=== PATIENT | male | born 1945 | race Caucasian/White ===

== ENCOUNTER 2016-10-10 21:27 | Inpatient (IN) | payer MEDICARE ==
[~2016-10-10] VITALS: Ht 165.1 cm; Wt 60.1 kg
[~2016-10-10 21:27] MED LIST: AUGM875T PO; AZIT250T74 PO; FURO20TA PO; MULT-65 PO; MYCO250 PO; NEXI40CA PO; PROG1CAP PO; VITA20002 PO; potassium PO
[2016-10-10 21:29] VITALS: BP 137/61; PULSE 117; RESP 22; TEMP 98.1; O2SAT 84
[2016-10-10 21:51] VITALS: BP 142/63; PULSE 109; RESP 24; TEMP 97.2; O2SAT 89
[2016-10-10] MEDS ORDERED: FURO1TAB62 PO (21:58)
[2016-10-10 21:59] VITALS: O2SAT 98
--- NOTE | 2016-10-10 22:13 | PD ---
HPI Chief Complaint: Respiratory Symptoms Time Seen by Provider: 22:10 Travel History International Travel<30 days: No Contact w/Intl Traveler<30days: No Traveled to known affect area: No History of Present Illness HPI 71-year-old male that presents to the ED for evaluation of shortness of breath. Patient has a chronic history of esophageal cancer currently undergoing chemotherapy. Per patient his last chemotherapy was on Wednesday. Per patient he has a history of pleural effusion secondary to the cancer and he has had thoracocentesis in the past. Per patient this feels similar to his previous. Per patient he has not had one in a while. Patient denies taking any blood thinners. He denies any cough or runny nose. Per patient he has shortness of breath with exertion as well as with movement. Also with sitting. Denies any chest pain. Denies any fevers chills or sweats. No sick contacts. No allergies to medication. No bowel movement or urinary issues. He does have some problems with dysphagia but that's chronic from his cancer. Patient mainly here to be evaluated for likely pleural effusion. PFSH Past Medical History Cancer: Yes (esophageal ca) Cardiovascular Problems: Yes (heart murmur) Diabetes: No Diminished Hearing: No Endocrine: No Gastrointestinal Disorders: No Glaucoma: No Genitourinary: No Hepatitis: Yes (CIRRHOSIS--S/P TRANSPLANT) Hypertension: Yes (hx only) Immune Disorder: No Implanted Vascular Access Dvce: Yes Medical other: Yes (eczema, warts) Musculoskeletal: No Neurologic: No Psychiatric: No Reproductive: No Respiratory: Yes (sob while laying supine) Thyroid Disease: No Past Surgical History Abdominal Surgery: Yes (LIVER TRANSPLANT, APPENDECTOMY, HERNIA REPAIR WITH MESH ) AICD: No Appendectomy: Yes Cardiac Surgery: No Endocrine Surgery: No Joint Replacement: No Oral Surgery: Yes (T & A) Pacemaker: No Thoracic Surgery: No Tonsillectomy: Yes Other Surgery: Yes (LIVER TRANSPLANT/ port to right chest wall) Social History Alcohol Use: Yes (4-6 DRINKS A DAY) Tobacco Use: No Substance Use: No Allergies-Medications (Allergen,Severity, Reaction): Coded Allergies: No Known Allergies (Verified , 10/10/16) Reported Meds & Prescriptions Reported Meds & Active Scripts Active Reported Lasix (Furosemide) 20 Mg Tab 20 Mg PO BID Review of Systems General / Constitutional: No: Fever, Chills, Weight Gain, Weight Loss, Other Eyes: No: Diploplia, Blurred Vision, Photophobia, Drainage, Redness, Foreign Body Sensation, Pain, Tearing, Blind Spots, Visual changes, Blindness, Other HENT: No: Headaches, Vertigo, Lightheadedness, Sore Throat, Rhinitis, Rhinorrhea, Congestion, Nosebleed, Neck Stiffness, Neck Pain, Masses, Gingival Bleeding, Dental Difficulties, Ear Discharge, Earache, Other Cardiovascular: Positive: Chest Pain or Discomfort Respiratory: Positive: Shortness of Breath, No: Cough, Wheezing, Sneezing, Orthopnea, Hemoptysis, Stridor, Night Sweats, Pleuritic Pain, Other Gastrointestinal: No: Nausea, Vomiting, Diarrhea, Abdominal Pain, Hematemesis, Hematochezia, Constipation, Changes in Bowel Habits, Indigestion, Dysphagia, Loss of Appetite, Other Genitourinary: No: Urgency, Frequency, Dysuria, Nocturia, Hematuria, Decreased Urinary Output, Oliguria, Hesitancy, Dribbling, Incontinence, Pelvic Pain, Flank Pain, Dyspareunia, Discharge, Dysmenorrhea, Menorrhagia, Metorrhagia, Vaginal Bleeding, Other Musculoskeletal: No: Myalgias, Arthralgias, Limited ROM, Weakness, Cramping, Edema, Pain, Atrophy, Other Skin: No Rash, No Itching, No Dryness, No Lumps, No Hives, No Change in Pigmentation, No Change in nails, No Alopecia, No Lesions, No Breast Lumps, No Breast Tenderness, No Breast Swelling, No Other Neurologic: No: Weakness, Dizziness, Syncope, Focal Abnormalities, Coordination Problem, Tremor, Ataxia, Headache, Change in Mentation, Slurred Speech, Paresthesia, Incontinence, Seizures, Sensory Disturbance, Other Psychiatric: No: Anxiety, Depression, Suicidal Ideations, Disorder of Thought, Mood Disorder, Substance Abuse, Homicidal Ideation, Other Endocrine: No: Heat Intolerance, Cold Intolerance, Polyuria, Polydipsia, Other Hematologic/Lymphatic: No: Easy Bruising, Lymph Node Enlargement, Other Physical Exam Narrative GENERAL: SKIN: Warm and dry. HEAD: Atraumatic. Normocephalic. EYES: Pupils equal and round. No scleral icterus. No injection or drainage. ENT: No nasal bleeding or discharge. Mucous membranes pink and moist. Tongue is midline. No uvula deviation. NECK: Trachea midline. No JVD. CARDIOVASCULAR: Regular rate and rhythm. No murmurs, S3, S4. RESPIRATORY: No accessory muscle use. Patient does have some diminished breath sounds on the right lung compared to the left. Breath sounds equal bilaterally. GASTROINTESTINAL: Abdomen soft, non-tender, nondistended. Hepatic and splenic margins not palpable. MUSCULOSKELETAL: Extremities without clubbing, cyanosis, or edema. No obvious deformities. NEUROLOGICAL: Awake and alert. No obvious cranial nerve deficits. Motor grossly within normal limits. Five out of 5 muscle strength in the arms and legs. Normal speech. PSYCHIATRIC: Appropriate mood and affect; insight and judgment normal. Data Data Last Documented VS Vital Signs Date Time Temp Pulse Resp B/P Pulse Ox O2 Delivery O2 Flow Rate FiO2 10/10/16 21:59 98 Nasal Cannula 3 10/10/16 21:51 97.2 109 24 142/63 Orders Electrocardiogram (10/10/16 21:56) Complete Blood Count With Diff (10/10/16 21:56) Basic Metabolic Panel (Bmp) (10/10/16 21:56) Prothrombin Time / Inr (Pt) (10/10/16 21:56) Act Partial Throm Time (Ptt) (10/10/16 21:56) Magnesium (Mg) (10/10/16 21:56) Chest, Single Ap (10/10/16 21:56) Ecg Monitoring (10/10/16 21:56) Oximetry (10/10/16 21:56) B-Type Natriuretic Peptide (10/10/16 22:34) Troponin I (10/10/16 22:34) Arterial Blood Gas (Abg) (10/10/16 ) Lorazepam Inj (Ativan Inj) (10/10/16 23:00) Labs Laboratory Tests Test 10/10/16 22:10 White Blood Count 3.6 TH/MM3 Red Blood Count 3.04 MIL/MM3 Hemoglobin 9.8 GM/DL Hematocrit 29.0 % Mean Corpuscular Volume 95.3 FL Mean Corpuscular Hemoglobin 32.2 PG Mean Corpuscular Hemoglobin 33.8 % Concent Red Cell Distribution Width 13.3 % Platelet Count 185 TH/MM3 Mean Platelet Volume 9.6 FL Neutrophils (%) (Auto) 89.7 % Lymphocytes (%) (Auto) 5.5 % Monocytes (%) (Auto) 2.7 % Eosinophils (%) (Auto) 1.4 % Basophils (%) (Auto) 0.7 % Neutrophils # (Auto) 3.2 TH/MM3 Lymphocytes # (Auto) 0.2 TH/MM3 Monocytes # (Auto) 0.1 TH/MM3 Eosinophils # (Auto) 0.1 TH/MM3 Basophils # (Auto) 0.0 TH/MM3 CBC Comment DIFF FINAL Differential Comment Prothrombin Time 10.8 SEC Prothromb Time International 1.0 RATIO Ratio Activated Partial 53.7 SEC Thromboplast Time MDM Medical Decision Making Medical Screen Exam Complete: Yes Emergency Medical Condition: Yes Medical Record Reviewed: Yes Interpretation(s) CBC & BMP Diagram 10/10/16 22:10 Differential Diagnosis Pleural effusion versus pneumothorax versus shortness of breath versus malignancy versus pneumonia Narrative Course 71-year-old male that presents to the ED for evaluation of what appears to be likely pleural effusion. Patient was properly examined and was found to have signs and symptoms consistent with hypoxia and pleural effusion. Labs and imaging ordered and did show what appears to be pleural effusion. My attending about the patient with me and agrees with plan. Case was signed out to him pending disposition likely admission. Teodoro Tatum Oct 10, 2016 22:13
[2016-10-10 22:27] LABS: AUTOMATED NEUTROPHIL # 3.2 TH/MM3 (1.8-7.7); BASOPHIL % 0.7 % (0.0-2.0); EOSINOPHIL # 0.1 TH/MM3 (0-0.4); EOSINOPHIL % 1.4 % (0.0-4.0); HEMO FLAGS DIFF FINAL; LYMPH % 5.5 % (9.0-44.0); LYMPHOCYTE # 0.2 TH/MM3 (1.0-4.8); MEAN CELL VOLUME 95.3 FL (80.0-100.0); MEAN CORPUSCULAR HEMOGLOBIN 32.2 PG (27.0-34.0); MEAN CORPUSCULAR HGB CONC 33.8 % (32.0-36.0); MONO % 2.7 % (0.0-8.0); NEUT % 89.7 % (16.0-70.0); PLATELET COUNT 185 TH/MM3 (150-450); RED BLOOD COUNT 3.04 MIL/MM3 (4.50-5.90); RED CELL DISTRIBUTION WIDTH 13.3 % (11.6-17.2); WHITE BLOOD COUNT 3.6 TH/MM3 (4.0-11.0)
[2016-10-10 22:37] LABS: APTT (PATIENT) 53.7 SEC (24.3-30.1); PROTHROMBIN TIME - PATIENT 10.8 SEC (9.8-11.6)
--- NOTE | 2016-10-10 22:50 | RADRPT ---
EXAM DATE/TIME: 10/10/2016 22:19 [facility] COMPARISON: CHEST EXPIRATION ONLY, July 10, 2016, 12:08. INDICATIONS : Short of Breath. MEDICAL HISTORY : Hypertension. Dyspnea. Esophageal cancer. Hip Cancer. Cirrhosis. Pleural effusion. SURGICAL HISTORY : Appendectomy. Tonsillectomy. Oral surgery. Hernia repair. Liver transplant. Port Placement. Chemoth erapy. ENCOUNTER: Initial ACUITY: 1 day PAIN SCORE: 0/10 LOCATION: Bilateral chest FINDINGS: There is a moderate size right pleural effusion and small left effusion. Cardiomegaly. Basilar lung c onsolidation. [id number] in superior vena cava. CONCLUSION: 1. Moderate right and small left pleural effusion with basilar airspace disease. [id number] in sup erior vena cava. Cardiomegaly. Roshan Marion MD on October 10, 2016 at 22:48 Board Certified Radiologist. This report was verified electronically.
[2016-10-10 22:52] LABS: BICARBONATE 31.7 MEQ/L (21.0-32.0); MAGNESIUM 1.7 MG/DL (1.5-2.5)
[2016-10-10] MEDS ORDERED: LORazepam 2 MG/ML VIAL IV PUSH ONE (23:00)
[2016-10-10 23:03] LABS: BLOOD GAS BASE EXCESS 3.7 mmol/L (-2-2); BLOOD GAS CARBOXYHEMOGLOBIN 2.2 % (0-4); BLOOD GAS HCO3 28 mmol/L (22-26); BLOOD GAS METHEMOGLOBIN 0.2 % (0-2); BLOOD GAS O2 HGB SATURATION 93 % (90-100); BLOOD GAS OXYGEN CONTENT 13.1 Vol % (12.0-20.0); BLOOD GAS PCO2 40 mmHg (38-42); BLOOD GAS PO2 73 mmHG (61-120); CRITICAL VALUE NO; OXYGEN DEVICE NASAL CANNULA; TEMP CORR TO 98.6
[2016-10-10 23:04] LABS: DRAW SITE RT RADIAL; LITER FLOW 4 L/M; NUMBER OF ARTERIAL PUNCTURES 1; STAT YES; ULNAR PULSE PRESENT
[2016-10-10] MEDS ORDERED: SODIUM CHLORIDE 0.9% FLUSH 10 ML FLUSH IVF PRN (23:15)
[2016-10-10] MEDS ORDERED: MISCELLANEOUS NURSING INFORMATION XX SCH (23:15)
[2016-10-10] MEDS ORDERED: ONDANSETRON HCL 4 MG/2 ML VIAL IV PRN (23:15)
[2016-10-10] MEDS ORDERED: CHLORHEXIDINE GLUCONATE 2 % 1 PACK (2 CLOTHS) TOP PRN (23:15)
[2016-10-10] MEDS ORDERED: ACETAMINOPHEN 325 MG TAB PO PRN (23:15)
[2016-10-10] MEDS ORDERED: MAGNESIUM HYDROXIDE SUSP 30 ML CUP PO PRN (23:15)
--- NOTE | 2016-10-10 23:23 | PD ---
Data Data Last Documented VS Vital Signs Date Time Temp Pulse Resp B/P Pulse Ox O2 Delivery O2 Flow Rate FiO2 10/10/16 21:59 98 Nasal Cannula 3 10/10/16 21:51 97.2 109 24 142/63 Orders Electrocardiogram (10/10/16 21:56) Complete Blood Count With Diff (10/10/16 21:56) Basic Metabolic Panel (Bmp) (10/10/16 21:56) Prothrombin Time / Inr (Pt) (10/10/16 21:56) Act Partial Throm Time (Ptt) (10/10/16 21:56) Magnesium (Mg) (10/10/16 21:56) Chest, Single Ap (10/10/16 21:56) Ecg Monitoring (10/10/16 21:56) Oximetry (10/10/16 21:56) B-Type Natriuretic Peptide (10/10/16 22:34) Troponin I (10/10/16 22:34) Arterial Blood Gas (Abg) (10/10/16 ) Lorazepam Inj (Ativan Inj) (10/10/16 23:00) Admit Order (Ed Use Only) (10/10/16 23:04) Labs Laboratory Tests Test 10/10/16 10/10/16 10/10/16 22:10 22:40 22:57 White Blood Count 3.6 TH/MM3 Red Blood Count 3.04 MIL/MM3 Hemoglobin 9.8 GM/DL Hematocrit 29.0 % Mean Corpuscular Volume 95.3 FL Mean Corpuscular Hemoglobin 32.2 PG Mean Corpuscular Hemoglobin 33.8 % Concent Red Cell Distribution Width 13.3 % Platelet Count 185 TH/MM3 Mean Platelet Volume 9.6 FL Neutrophils (%) (Auto) 89.7 % Lymphocytes (%) (Auto) 5.5 % Monocytes (%) (Auto) 2.7 % Eosinophils (%) (Auto) 1.4 % Basophils (%) (Auto) 0.7 % Neutrophils # (Auto) 3.2 TH/MM3 Lymphocytes # (Auto) 0.2 TH/MM3 Monocytes # (Auto) 0.1 TH/MM3 Eosinophils # (Auto) 0.1 TH/MM3 Basophils # (Auto) 0.0 TH/MM3 CBC Comment DIFF FINAL Differential Comment Prothrombin Time 10.8 SEC Prothromb Time International 1.0 RATIO Ratio Activated Partial 53.7 SEC Thromboplast Time Sodium Level 136 MEQ/L Potassium Level 4.0 MEQ/L Chloride Level 93 MEQ/L Carbon Dioxide Level 31.7 MEQ/L Anion Gap 11 MEQ/L Blood Urea Nitrogen 28 MG/DL Creatinine 0.95 MG/DL Estimat Glomerular Filtration 78 ML/MIN Rate Random Glucose 168 MG/DL Calcium Level 8.6 MG/DL Magnesium Level 1.7 MG/DL Troponin I 0.08 NG/ML B-Type Natriuretic Peptide 2484 PG/ML Blood Gas Puncture Site RT RADIAL Blood Gas Patient Temperature 98.6 Blood Gas HCO3 28 mmol/L Blood Gas Base Excess 3.7 mmol/L Blood Gas Oxygen Saturation 93 % Arterial Blood pH 7.46 Arterial Blood Partial 40 mmHg Pressure CO2 Arterial Blood Partial 73 mmHG Pressure O2 Arterial Blood Oxygen Content 13.1 Vol % Arterial Blood 2.2 % Carboxyhemoglobin Arterial Blood Methemoglobin 0.2 % Blood Gas Hemoglobin 10.0 G/DL Oxygen Delivery Device NASAL CANNULA Blood Gas Liter Flow 4 L/M MDM Medical Record Reviewed: Yes Supervised Visit with DAVID: Yes Narrative Course IRigo, have reviewed the advance practice practitioner's documentation and am in agreement unless otherwise documented below, met with the patient face to face, made the diagnosis, and the medical decision making was done by me. *My assessment and Findings: The patient has bilateral pleural effusions. He has mild dyspnea. He'll be admitted for evaluation of same. Placement in the ICU is considered appropriate for the patient. Case discussed with Dr. Mayer. Case discussed with Dr. Mcgregor for laminate floor installer service Diagnosis Primary Impression: Pleural effusion Additional Impression: Dyspnea Qualified Code: R06.00 - Dyspnea, unspecified type Admitting Information Admitting Physician Requests: Admit Omar Sierra MD Oct 10, 2016 23:23
[2016-10-11] VITALS (13 sets, daily range): BP systolic 94–153; BP diastolic 48–72; PULSE 88–128; RESP 18–24; TEMP 97.5–98.2; O2SAT 92–100
--- NOTE | 2016-10-11 03:02 | PD.PROCEDR ---
Procedure Note Procedure Thoracentesis Right A time-out was completed verifying correct patient, procedure, site, positioning , and special equipment if applicable. The patients right side was prepped and draped in a sterile manner after the appropriate infiltration level was confirmed by ultrasound. 1% lidocaine was used anesthetize the surrounding skin. A finder needle was then used to locate fluid and clear yellow fluid was obtained. A 10-blade scalpel used to make the incision. The thoracentesis catheter was then threaded without difficulty. The patient had 2000 mL of hemorrhagic fluid removed. A post-procedure chest x-ray was ordered and the fluid will be sent for several studies. Estimated Blood Loss: 2 mL Leonid Mcgregor MD Oct 11, 2016 03:02
[2016-10-11] MEDS: CHLORHEXIDINE GLUCONATE 2 % 1 PACK (2 CLOTHS) TOP SCH (04:00)
[2016-10-11 04:32] LABS: ALT (GPT) 46 U/L (12-78); ANION GAP 7 MEQ/L (5-15); AST (GOT) 51 U/L (15-37); BICARBONATE 33.1 MEQ/L (21.0-32.0); BLOOD UREA NITROGEN 29 MG/DL (7-18); CHLORIDE 97 MEQ/L (98-107); GLOMERULAR FILTRATION RATE 75 ML/MIN (>89); MAGNESIUM 1.8 MG/DL (1.5-2.5); POTASSIUM 4.1 MEQ/L (3.5-5.1); SODIUM (NA) 137 MEQ/L (136-145)
[2016-10-11 04:35] LABS: ALKALINE PHOSPHATASE 841 U/L (45-117); TOTAL BILIRUBIN ADULT 2.4 MG/DL (0.2-1.0)
[2016-10-11 04:37] LABS: AUTOMATED NEUTROPHIL # 1.7 TH/MM3 (1.8-7.7); BASOPHIL % 0.4 % (0.0-2.0); EOSINOPHIL % 0.2 % (0.0-4.0); HEMATOCRIT 27.2 % (39.0-51.0); LYMPH % 6.4 % (9.0-44.0); LYMPHOCYTE # 0.1 TH/MM3 (1.0-4.8); MEAN CELL VOLUME 95.1 FL (80.0-100.0); MEAN CORPUSCULAR HEMOGLOBIN 32.8 PG (27.0-34.0); MEAN CORPUSCULAR HGB CONC 34.5 % (32.0-36.0); PLATELET COUNT 151 TH/MM3 (150-450); RED BLOOD COUNT 2.86 MIL/MM3 (4.50-5.90); RED CELL DISTRIBUTION WIDTH 13.6 % (11.6-17.2); WHITE BLOOD COUNT 1.9 TH/MM3 (4.0-11.0)
[2016-10-11 04:39] LABS: PROTHROMBIN TIME - PATIENT 11.1 SEC (9.8-11.6)
[2016-10-11 04:41] LABS: CREATINE KINASE 35 U/L (39-308)
[2016-10-11 04:47] LABS: HEMO FLAGS AUTO DIFF
--- NOTE | 2016-10-11 08:38 | RADRPT ---
EXAM DATE/TIME: 10/11/2016 01:26 [facility] COMPARISON: CHEST SINGLE AP, October 10, 2016, 22:19. INDICATIONS : Post right sided thoracentesis. MEDICAL HISTORY : Hypertension. Carcinoma, esophageal. Cirrhosis. SURGICAL HISTORY : Appendectomy. Tonsillectomy. Liver transplant ENCOUNTER: Subsequent ACUITY: 1 day PAIN SCORE: Non-responsive. LOCATION: Right chest FINDINGS: A single portable frontal view of the chest shows reduction in size of the right pleural effusion. A small right effusion remains. A moderate size left pleural effusion is again noted. Bibasilar consoli dation more pronounced on the left. Heart remains enlarged. Power port overlies the right chest. No p neumothorax. A degenerative thoracic spine. CONCLUSION: Reduction in size of the right pleural effusion without pneumothorax. Persistent cardiomegaly, bilate ral pleural effusions, and bibasilar infiltrates. Marlon Gaona Jr., MD on October 11, 2016 at 1:53 Board Certified Radiologist. This report was verified electronically.
[2016-10-11 10:28] LABS: BANDS 17 % (0-6); NEUTROPHIL # MANUAL DIFF 1.8 TH/MM3 (1.8-7.7); POLYS (SEG NEUTROPHILS) 80 % (16-70); WBC DIFF SAMPLE 100
[2016-10-11 10:32] LABS: PLATELET ESTIMATE SMEAR NORMAL (NORMAL); PLATELET MORPHOLOGY NORMAL (NORMAL); SCAN/DIFF FINAL DIFF MANUAL
--- NOTE | 2016-10-11 12:19 | HHI.HP ---
History of Present Illness Service Family medicine Primary Care Physician Rufino Mayer, DO Admission Diagnosis Pleural Effusion, Dyspnea Diagnoses: History of Present Illness Patient is a 71-year-old male that presents to the ED for evaluation of shortness of breath. Patient has a chronic history of esophageal cancer and hip cancer currently undergoing chemotherapy last dose on Wednesday. Per patient he has a history of pleural effusion secondary to the cancer and he has had thoracocentesis in the past. Per patient this feels similar to his previous. Per patient he has not had one in a while. Patient denies taking any blood thinners. He denies any cough or runny nose. Per patient he has shortness of breath with exertion as well as with movement. Also with sitting. Denies any chest pain. Denies any fevers chills or sweats. No sick contacts. No allergies to medication. No bowel movement or urinary issues. He does have some problems with dysphagia but that's chronic from his cancer. Patient also has a history of liver transplant followed by Dr. Ann for ETOH use. He continues to drink. Review of Systems Constitutional: COMPLAINS OF: Change in appetite, DENIES: Fever, Dizziness Respiratory: COMPLAINS OF: Cough, Sputum production, Shortness of breath Cardiovascular: DENIES: Chest pain, Palpitations, Syncope Gastrointestinal: DENIES: Abdominal pain, Constipation, Diarrhea Musculoskeletal: COMPLAINS OF: Muscle aches Psychiatric: DENIES: Anxiety, Confusion Past Family Social History Allergies: Coded Allergies: No Known Allergies (Verified , 10/10/16) Past Medical History Esophageal cancer currently undergoing chemo Heart murmur) Cirrhosis- S/P liver transplant HTN Past Surgical History Liver transplant Reported Medications Reported Meds & Active Scripts Active Reported Lasix (Furosemide) 20 Mg Tab 20 Mg PO BID Active Ordered Medications Current Medications Medications (Trade) Dose Ordered Sig/Lucita Route Start Time Stop Time Status Last Admin (NS Flush) 2 ml UNSCH PRN IVF 10/10/16 23:15 (Tylenol) 650 mg Q6H PRN PO 10/10/16 23:15 (Percocet 5-325 Mg) 1 tab Q4H PRN PO 10/10/16 23:15 (Zofran Inj) 4 mg Q6H PRN IV 10/10/16 23:15 (Milk Of Magnesia Liq) 30 ml Q12H PRN PO 10/10/16 23:15 (Restoril) 15 mg HS PRN PO 10/10/16 23:15 Miscellaneous Information 1 Q361D XX 10/10/16 23:15 (Chlorhexidine 2% Cloth) 3 pack Taper DAILY@04 TOP 10/11/16 04:00 10/07/17 03:59 (Chlorhexidine 2% Cloth) 3 pack UNSCH PRN TOP 10/10/16 23:15 Social History Lives with friend who helps care for him Retired collection specialist. Does not smoke Drink daily 4-6 per day Physical Exam Vital Signs Vital Signs Date Time Temp Pulse Resp B/P Pulse Ox O2 Delivery O2 Flow Rate FiO2 10/11/16 09:37 96 18 105/51 100 Nasal Cannula 3 10/11/16 09:08 98.1 100 18 117/57 97 Nasal Cannula 4 10/11/16 09:08 101 18 97 Nasal Cannula 4 10/11/16 06:15 101 18 106/53 99 Nasal Cannula 3 10/11/16 04:07 98 20 103/53 92 Nasal Cannula 4 10/11/16 03:12 96 18 94/48 100 Nasal Cannula 3 10/11/16 03:12 100 Nasal Cannula 3 10/11/16 00:21 128 24 153/72 96 Nasal Cannula 4 10/10/16 21:59 98 Nasal Cannula 3 10/10/16 21:55 98 Nasal Cannula 3 10/10/16 21:51 97.2 109 24 142/63 89 10/10/16 21:29 98.1 117 22 137/61 84 Room Air Physical Exam GENERAL: This is a cachetic male in mild distress. SKIN: No rashes, ecchymoses or lesions. Cool and dry. EYES: Pupils equal round and reactive. . ENT: Nose without bleeding, purulent drainage or septal hematoma. Throat without erythema, tonsillar hypertrophy or exudate. Uvula midline. Airway patent. CARDIOVASCULAR: Regular rate and rhythm. Murmur noted. RESPIRATORY: Rhonchi. Equal chest expansion. GASTROINTESTINAL: Abdomen soft, non-tender, nondistended. No hepato-splenomegaly , or palpable masses. No guarding. MUSCULOSKELETAL: Extremities without clubbing, cyanosis, or edema. Negative Homans sign bilaterally. NEUROLOGICAL: Awake and alert. Normal speech. Laboratory Laboratory Tests Test 10/10/16 10/10/16 10/10/16 10/11/16 22:10 22:40 22:57 00:18 White Blood Count 3.6 Red Blood Count 3.04 Hemoglobin 9.8 Hematocrit 29.0 Mean Corpuscular Volume 95.3 Mean Corpuscular Hemoglobin 32.2 Mean Corpuscular Hemoglobin 33.8 Concent Red Cell Distribution Width 13.3 Platelet Count 185 Mean Platelet Volume 9.6 Neutrophils (%) (Auto) 89.7 Lymphocytes (%) (Auto) 5.5 Monocytes (%) (Auto) 2.7 Eosinophils (%) (Auto) 1.4 Basophils (%) (Auto) 0.7 Neutrophils # (Auto) 3.2 Lymphocytes # (Auto) 0.2 Monocytes # (Auto) 0.1 Eosinophils # (Auto) 0.1 Basophils # (Auto) 0.0 CBC Comment DIFF FINAL Differential Comment Prothrombin Time 10.8 Prothromb Time International 1.0 Ratio Activated Partial 53.7 Thromboplast Time Sodium Level 136 Potassium Level 4.0 Chloride Level 93 Carbon Dioxide Level 31.7 Anion Gap 11 Blood Urea Nitrogen 28 Creatinine 0.95 Estimat Glomerular Filtration 78 Rate Random Glucose 168 Calcium Level 8.6 Magnesium Level 1.7 Troponin I 0.08 B-Type Natriuretic Peptide 2484 Blood Gas Puncture Site RT RADIAL Blood Gas Patient Temperature 98.6 Blood Gas HCO3 28 Blood Gas Base Excess 3.7 Blood Gas Oxygen Saturation 93 Arterial Blood pH 7.46 Arterial Blood Partial 40 Pressure CO2 Arterial Blood Partial 73 Pressure O2 Arterial Blood Oxygen Content 13.1 Arterial Blood 2.2 Carboxyhemoglobin Arterial Blood Methemoglobin 0.2 Blood Gas Hemoglobin 10.0 Oxygen Delivery Device NASAL CANNULA Blood Gas Liter Flow 4 Ammonia 42 Prealbumin 13 Test 10/11/16 03:55 White Blood Count 1.9 Red Blood Count 2.86 Hemoglobin 9.4 Hematocrit 27.2 Mean Corpuscular Volume 95.1 Mean Corpuscular Hemoglobin 32.8 Mean Corpuscular Hemoglobin 34.5 Concent Red Cell Distribution Width 13.6 Platelet Count 151 Mean Platelet Volume 9.5 Neutrophils (%) (Auto) 91.0 Lymphocytes (%) (Auto) 6.4 Monocytes (%) (Auto) 2.0 Eosinophils (%) (Auto) 0.2 Basophils (%) (Auto) 0.4 Neutrophils # (Auto) 1.7 Lymphocytes # (Auto) 0.1 Monocytes # (Auto) 0.0 Eosinophils # (Auto) 0.0 Basophils # (Auto) 0.0 CBC Comment AUTO DIFF Differential Total Cells 100 Counted Neutrophils % (Manual) 80 Band Neutrophils % 17 Lymphocytes % 3 Neutrophils # (Manual) 1.8 Differential Comment FINAL DIFF MANUAL Platelet Estimate NORMAL Platelet Morphology Comment NORMAL Prothrombin Time 11.1 Prothromb Time International 1.0 Ratio Sodium Level 137 Potassium Level 4.1 Chloride Level 97 Carbon Dioxide Level 33.1 Anion Gap 7 Blood Urea Nitrogen 29 Creatinine 0.99 Estimat Glomerular Filtration 75 Rate Random Glucose 136 Calcium Level 8.5 Magnesium Level 1.8 Total Bilirubin 2.4 Aspartate Amino Transf 51 (AST/SGOT) Alanine Aminotransferase 46 (ALT/SGPT) Alkaline Phosphatase 841 Total Creatine Kinase 35 Total Protein 5.8 Albumin 2.4 Result Diagram: 10/11/16 0355 10/11/16 0355 Imaging Last 48 hours Impressions Chest X-Ray 10/11/16 0000 Signed Impressions: Service Date/Time: Tuesday, October 11, 2016 01:26 - CONCLUSION: Reduction in size of the right pleural effusion without pneumothorax. Persistent cardiomegaly, bilateral pleural effusions, and bibasilar infiltrates. Marlon Gaona Jr., MD Chest X-Ray 10/10/16 2156 Signed Impressions: Service Date/Time: Monday, October 10, 2016 22:19 - CONCLUSION: 1. Moderate right and small left pleural effusion with basilar airspace disease. [id number] in superior vena cava. Cardiomegaly. Roshan Marion MD Assessment and Plan Problem List: (1) Pleural effusion, right Status: Acute Plan: Thoracentesis per Dr Mcgregor. 2 liters removed tolerated well (2) Pulmonary infiltrate Status: Acute Plan: Azithromycin and Zosyn started. Pulmonary consulted and breathing treatments ordered (3) Dysphagia Status: Chronic Plan: Patient with esophageal cancer. Some dysphagia noted. Will get speech to evaluate for possible aspiration (4) Neutropenia Status: Acute Plan: WBC 1.9, last chemo on . Will consult his oncologist to follow. (5) Anemia Status: Acute Plan: HGB 9.4. Will add iron and monitor. (6) Back pain Status: Chronic Plan: Pain medication PRN Assessment and Plan Assessment and plan discussed with Dr. Mayer Discharge Planning Discharge home with [facility] Candi Chin Oct 11, 2016 12:19
[2016-10-11] MEDS: AZITHROMYCIN INJ 500 MG in SODIUM CHLOR 0.9% 250 ML INJ 250 ML IV SCH (12:54)
[2016-10-11] MEDS: PANTOPRAZOLE SODIUM 40 MG VIAL IV PUSH SCH (12:55)
[2016-10-11] MEDS: PIPERACIL-TAZO 3.375 GM PREMIX 50 ML IV SCH ×2 (14:10→20:17)
--- NOTE | 2016-10-11 15:08 | EKG ---
Date Performed: 10/10/2016 Time Performed: 22:07:33 PTAGE: 71 years EKG: SINUS TACHYCARDIA POSSIBLE LEFT ATRIAL ENLARGEMENT ANTERIOR MYOCARDIAL INFARCTION INFERIOR MYOCARDIAL INFARCTION Loss of R waves in Lead II from the prior tracing, which could be due to new le ft axis deviation ABNORMAL ECG PREVIOUS TRACING : 03/23/2016 22.49 DOCTOR: Johnny Carlos Interpretating Date/Time 10/11/2016 15:07:09
[2016-10-11] MEDS: TEMAZEPAM 15 MG CAP PO PRN (21:12)
[2016-10-12] VITALS (8 sets, daily range): BP systolic 94–115; BP diastolic 47–57; PULSE 90–99; RESP 18–24; TEMP 97–97.8; O2SAT 96–100
[2016-10-12] MEDS: PIPERACIL-TAZO 3.375 GM PREMIX 50 ML IV SCH ×3 (02:35→15:28)
[2016-10-12] MEDS: CHLORHEXIDINE GLUCONATE 2 % 1 PACK (2 CLOTHS) TOP SCH (04:00)
[2016-10-12 06:03] LABS: HEMATOCRIT 27.8 % (39.0-51.0); MEAN CELL VOLUME 95.9 FL (80.0-100.0); MEAN CORPUSCULAR HEMOGLOBIN 32.4 PG (27.0-34.0); MEAN CORPUSCULAR HGB CONC 33.8 % (32.0-36.0); PLATELET COUNT 134 TH/MM3 (150-450); RED BLOOD COUNT 2.89 MIL/MM3 (4.50-5.90); RED CELL DISTRIBUTION WIDTH 13.6 % (11.6-17.2); WHITE BLOOD COUNT 0.9 TH/MM3 (4.0-11.0)
[2016-10-12 06:06] LABS: HEMO FLAGS AUTO DIFF
[2016-10-12 06:14] LABS: BICARBONATE 32.5 MEQ/L (21.0-32.0); MAGNESIUM 1.7 MG/DL (1.5-2.5); POTASSIUM 3.8 MEQ/L (3.5-5.1)
--- NOTE | 2016-10-12 07:18 | HHI.PR ---
Subjective Remarks Denies any CP or SOB. WBC down to 0.9. Objective Vital Signs Date Time Temp Pulse Resp B/P Pulse Ox O2 Delivery O2 Flow Rate FiO2 10/12/16 04:00 97.8 99 24 112/53 96 10/12/16 00:00 97.7 98 20 99/51 98 10/11/16 20:00 101 10/11/16 20:00 98.2 99 22 112/56 98 10/11/16 17:58 97.5 100 18 114/51 97 10/11/16 17:10 94 Nasal Cannula 2 10/11/16 17:01 98 18 102/54 94 Nasal Cannula 2 10/11/16 12:06 88 24 123/58 93 Nasal Cannula 3 10/11/16 10:53 99 Nasal Cannula 2.00 10/11/16 09:37 96 18 105/51 100 Nasal Cannula 3 10/11/16 09:08 98.1 100 18 117/57 97 Nasal Cannula 4 10/11/16 09:08 101 18 97 Nasal Cannula 4 I/O 10/11/16 10/11/16 10/11/16 10/12/16 10/12/16 10/12/16 07:00 15:00 23:00 07:00 15:00 23:00 Intake Total 170 ml 145 ml Balance 170 ml 145 ml Intake Oral 120 ml 100 ml IV Total 50 ml 45 ml # Voids 1 1 # Bowel Movements 1 0 Result Diagram: 10/12/16 0554 10/12/16 0554 Imaging Last 48 hours Impressions Chest X-Ray 10/11/16 0000 Signed Impressions: Service Date/Time: Tuesday, October 11, 2016 01:26 - CONCLUSION: Reduction in size of the right pleural effusion without pneumothorax. Persistent cardiomegaly, bilateral pleural effusions, and bibasilar infiltrates. Marlon Gaona Jr., MD Chest X-Ray 10/10/16 2156 Signed Impressions: Service Date/Time: Monday, October 10, 2016 22:19 - CONCLUSION: 1. Moderate right and small left pleural effusion with basilar airspace disease. [id number]-[id number] in superior vena cava. Cardiomegaly. Roshan Marion MD Objective Remarks GENERAL: Alert and cooperative SKIN: Warm and dry. HEAD: Normocephalic. EYES: No scleral icterus. No injection or drainage. NECK: Supple, trachea midline. No JVD or lymphadenopathy. CARDIOVASCULAR: Regular rate and rhythm without murmurs, gallops, or rubs. RESPIRATORY: Breath sounds with rhonchi. No accessory muscle use. O 2 liters GASTROINTESTINAL: Abdomen soft, non-tender, nondistended. MUSCULOSKELETAL: No cyanosis, or edema. BACK: Nontender without obvious deformity. No CVA tenderness. Medications and IVs Current Medications Medications (Trade) Dose Ordered Sig/Lucita Route Start Time Stop Time Status Last Admin (NS Flush) 2 ml UNSCH PRN IVF 10/10/16 23:15 (Tylenol) 650 mg Q6H PRN PO 10/10/16 23:15 (Percocet 5-325 Mg) 1 tab Q4H PRN PO 10/10/16 23:15 (Zofran Inj) 4 mg Q6H PRN IV 10/10/16 23:15 (Milk Of Magnesia Liq) 30 ml Q12H PRN PO 10/10/16 23:15 (Restoril) 15 mg HS PRN PO 10/10/16 23:15 10/11/16 21:12 Miscellaneous Information 1 Q361D XX 10/10/16 23:15 (Chlorhexidine 2% Cloth) 3 pack Taper DAILY@04 TOP 10/11/16 04:00 10/07/17 03:59 (Chlorhexidine 2% Cloth) 3 pack UNSCH PRN TOP 10/10/16 23:15 Pantoprazole Sodium 40 mg 40 mg Q24H IV PUSH 10/11/16 13:00 10/11/16 12:55 Azithromycin 500 mg/Sodium Chloride 250 ml @ 250 mls/hr Q24H IV 10/11/16 13:00 10/11/16 12:54 (Zosyn 3.375 Gm Premix) 50 ml @ 100 mls/hr Q6H IV 10/11/16 14:00 10/12/16 02:35 Assessment and Plan Problem List: (1) Pleural effusion, right Status: Acute Plan: Thoracentesis per Dr Mcgregor. 2 liters removed tolerated well (2) Pulmonary infiltrate Status: Acute Plan: Azithromycin and Zosyn started. Pulmonary consulted and breathing treatments ordered. ST ordered to evaluate for possible aspiration. ID consulted for antibiotic recommendations. (3) Dysphagia Status: Chronic Plan: Patient with esophageal cancer. Some dysphagia noted. Will get speech to evaluate for possible aspiration (4) Neutropenia Status: Acute Plan: WBC 0.9 last chemo on Wednesday.. Will consult his oncologist to follow. (5) Anemia Status: Acute Plan: HGB 9.4. Will add iron and monitor. (6) Back pain Status: Chronic Plan: Pain medication PRN (7) Edema Status: Acute Plan: Home dose of lasix resumed. Assessment and Plan Assessment and plan discussed with Dr. Mayer Discharge Planning Discharge home with [facility] Candi Chin Oct 12, 2016 07:18
[2016-10-12 07:58] LABS: BANDS 31 % (0-6); CORRECTED NUCLEATED RBC 1 /100 WBC (0-0); EOSINOPHILS 6 % (0-4); NEUTROPHIL # MANUAL DIFF 0.7 TH/MM3 (1.8-7.7); POLYS (SEG NEUTROPHILS) 44 % (16-70); WBC DIFF SAMPLE 100
[2016-10-12 08:00] LABS: PLATELET ESTIMATE SMEAR LOW (NORMAL); PLATELET MORPHOLOGY NORMAL (NORMAL); SCAN/DIFF FINAL DIFF MANUAL
[2016-10-12] MEDS: MAGNESIUM SULFATE 1 GM PREMIX 100 ML IV SCH ×2 (08:22→08:38)
[2016-10-12] MEDS: POTASSIUM CHLORIDE 20 MEQ CONTROLLED RELEASE TAB PO SCH (08:22)
[2016-10-12] MEDS: oxyCODONE/ACETAMINOPHEN 5 MG/325 MG TAB PO PRN ×3 (08:38→21:34)
[2016-10-12] MEDS ORDERED: FUROSEMIDE 40 MG/4 ML VIAL IV PUSH SCH (09:00)
[2016-10-12] MEDS: PANTOPRAZOLE SODIUM 40 MG VIAL IV PUSH SCH (13:20)
[2016-10-12] MEDS: AZITHROMYCIN INJ 500 MG in SODIUM CHLOR 0.9% 250 ML INJ 250 ML IV SCH (13:20)
--- NOTE | 2016-10-12 15:09 | PD.ID.CON ---
History of Present Illness Service ID Consult Requested By Dr Chin Reason for Consult pulm infiltrate Primary Care Physician Rufino Mayer, Diagnoses: History of Present Illness Patient is a 71-year-old male that presents to the ED for evaluation of shortness of breath. It was slow onset for about a month. No fever, chiollsm, no cough no sputum production Patient has a chronic history of esophageal cancer and hip cancer currently undergoing chemotherapy last dose on Wednesday. He was found to have bl pleural efffusions - more on the R He apparently has chronic pleural effusion which was tapped multiple times in the past, no malignant cells Pt presented afebrile, non neutropenic, but in 2 days became neutropenic with ANC of 700 He is started on zosyn, azithromycin Pt has a liver transplant done 8 yrs ago , but he quit taking immunosuppressants about 6 mos ago . He also drinks 4-6 drinks daily Review of Systems Constitutional: COMPLAINS OF: Fatigue, Weight loss, Change in appetite Ears, nose, mouth, throat: COMPLAINS OF: Oral lesions Respiratory: COMPLAINS OF: Shortness of breath Cardiovascular: COMPLAINS OF: Dyspnea on Exertion Gastrointestinal: COMPLAINS OF: Anorexia Except as stated in HPI: all other systems reviewed are Neg Past Family Social History Allergies: Coded Allergies: No Known Allergies (Verified , 10/10/16) Past Medical History Esophageal cancer currently undergoing chemo Heart murmur) Cirrhosis- S/P liver transplant HTN Past Surgical History Liver transplant Active Ordered Medications Medications where reviewed in EMR Antibiotics Include: zosyn azithro Family History Non-Contributory. Social History Lives with friend who helps care for him Retired commercial collections specialist. Does not smoke Drink daily 4-6 per day Physical Exam Vital Signs Vital Signs Date Time Temp Pulse Resp B/P Pulse Ox O2 Delivery O2 Flow Rate FiO2 10/12/16 12:00 97.0 94 18 115/57 97 10/12/16 08:00 97.8 96 18 107/54 96 10/12/16 07:00 94 10/12/16 04:00 97.8 99 24 112/53 96 10/12/16 00:00 97.7 98 20 99/51 98 10/11/16 20:00 101 10/11/16 20:00 98.2 99 22 112/56 98 10/11/16 17:58 97.5 100 18 114/51 97 10/11/16 17:10 94 Nasal Cannula 2 10/11/16 17:01 98 18 102/54 94 Nasal Cannula 2 Physical Exam CONSTITUTIONAL/GENERAL: This is a chronically ill appearing elderly patient, in no apparent distress. TUBES/LINES/DRAINS: SKIN: No jaundice, rashes, or lesions. Skin temperature appropriate. Not diaphoretic. HEAD: Atraumatic. Normocephalic. EYES: Pupils equal and round and reactive. Extraocular motions intact. + mild scleral icterus. No injection or drainage. Fundi not examined. ENT: Hearing grossly normal. Nose without bleeding or purulent drainage. Oral mucosae with scattered small lesions on gums, toungue Prominent gum disease and very poor dentition NECK: Trachea midline. Supple, nontender. No palpable thyroid enlargement or nodularity. CARDIOVASCULAR: Regular rate and rhythm without murmurs, gallops, or rubs. No JVD. Peripheral pulses symmetric. RESPIRATORY/CHEST: Symmetric, unlabored respirations. Clear to auscultation. Breath sounds equal bilaterally. Diminished breath sounds on R base GASTROINTESTINAL: Abdomen soft, non-tender, nondistended. No hepato-splenomegaly , or palpable masses. No guarding. Bowel sounds present. GENITOURINARY: Without palpable bladder distension. MUSCULOSKELETAL: Extremities without clubbing, cyanosis, or edema. No joint tenderness or effusion noted. No calf tenderness. No mottling or clubbing. LYMPHATICS: No palpable cervical or supraclavicular adenopathy. NEUROLOGICAL: Awake and alert. Motor and sensory grossly within normal limits. Follows commands. Cognitively sharp. Moves all extremities. PSYCHIATRIC: flat affect Laboratory Laboratory Tests Test 10/12/16 05:54 White Blood Count 0.9 Red Blood Count 2.89 Hemoglobin 9.4 Hematocrit 27.8 Mean Corpuscular Volume 95.9 Mean Corpuscular Hemoglobin 32.4 Mean Corpuscular Hemoglobin 33.8 Concent Red Cell Distribution Width 13.6 Platelet Count 134 Mean Platelet Volume 9.2 Neutrophils (%) (Auto) Lymphocytes (%) (Auto) Monocytes (%) (Auto) Eosinophils (%) (Auto) Basophils (%) (Auto) Neutrophils # (Auto) Lymphocytes # (Auto) Monocytes # (Auto) Eosinophils # (Auto) Basophils # (Auto) CBC Comment AUTO DIFF Differential Total Cells 100 Counted Neutrophils % (Manual) 44 Band Neutrophils % 31 Lymphocytes % 14 Monocytes % 5 Eosinophils % 6 Neutrophils # (Manual) 0.7 Nucleated Red Blood Cells 1 Differential Comment FINAL DIFF MANUAL Platelet Estimate LOW Platelet Morphology Comment NORMAL Sodium Level 138 Potassium Level 3.8 Chloride Level 96 Carbon Dioxide Level 32.5 Anion Gap 10 Blood Urea Nitrogen 35 Creatinine 1.23 Estimat Glomerular Filtration 58 Rate Random Glucose 140 Calcium Level 8.5 Phosphorus Level 3.6 Magnesium Level 1.7 Result Diagram: 10/12/16 0554 10/12/16 0554 Imaging Last Impressions Chest X-Ray 10/11/16 0000 Signed Impressions: Service Date/Time: Tuesday, October 11, 2016 01:26 - CONCLUSION: Reduction in size of the right pleural effusion without pneumothorax. Persistent cardiomegaly, bilateral pleural effusions, and bibasilar infiltrates. Marlon Gaona Jr., MD Assessment and Plan Assessment and Plan Esopahgeal ca with recurrent persistent R pleural hjemorrhagic effusion Immunosuppressed, on chemnotherapy Liver transplant, quit taking his immunosuppressants Doubt pneumonia based on clin and radiographical presentation - dc abx monitor clinically fu WBC Discussed Condition With Jazzy Herrera MD Oct 12, 2016 15:09
[2016-10-13] VITALS (8 sets, daily range): BP systolic 96–112; BP diastolic 49–53; PULSE 91–107; RESP 18–22; TEMP 97.3–98.4; O2SAT 91–100
[2016-10-13] MEDS: CHLORHEXIDINE GLUCONATE 2 % 1 PACK (2 CLOTHS) TOP SCH (04:00)
[2016-10-13] MEDS: oxyCODONE/ACETAMINOPHEN 5 MG/325 MG TAB PO PRN (04:13)
[2016-10-13 05:51] LABS: HEMATOCRIT 26.8 % (39.0-51.0); MEAN CELL VOLUME 96.2 FL (80.0-100.0); MEAN CORPUSCULAR HEMOGLOBIN 32.6 PG (27.0-34.0); MEAN CORPUSCULAR HGB CONC 33.9 % (32.0-36.0); PLATELET COUNT 146 TH/MM3 (150-450); RED BLOOD COUNT 2.79 MIL/MM3 (4.50-5.90); RED CELL DISTRIBUTION WIDTH 13.5 % (11.6-17.2)
[2016-10-13 06:13] LABS: BICARBONATE 31.3 MEQ/L (21.0-32.0)
--- NOTE | 2016-10-13 06:49 | RADRPT ---
EXAM DATE/TIME: 10/13/2016 05:17 [facility] COMPARISON: CHEST SINGLE AP, October 11, 2016, 1:26. INDICATIONS : Short of breath, effusion MEDICAL HISTORY : Hypertension. Carcinoma, esophageal. Cirrhosis. SURGICAL HISTORY : Appendectomy. Tonsillectomy. liver transplant, infusaport, thoracentesis ENCOUNTER: Subsequent ACUITY: 2 days PAIN SCORE: 0/10 LOCATION: Bilateral chest FINDINGS: A single view of the chest demonstrates [id number] in right atrium. Bilateral effusions. Basilar a irspace disease. No pneumothorax. CONCLUSION: 1. Right basilar airspace consolidation slightly increased from October 11. Left basilar airspace disea se relatively stable. Bilateral effusions. Roshan Marion MD on October 13, 2016 at 6:45 Board Certified Radiologist. This report was verified electronically.
[2016-10-13 07:10] LABS: HEMO FLAGS AUTO DIFF
--- NOTE | 2016-10-13 07:10 | HHI.PR ---
Subjective Remarks Patient seen at bedside. Denies and CP or SOB. Has appt with oncology today. Objective Vital Signs Date Time Temp Pulse Resp B/P Pulse Ox O2 Delivery O2 Flow Rate FiO2 10/13/16 04:00 97.3 91 18 107/51 94 10/13/16 00:00 97.7 97 18 105/53 98 10/12/16 20:08 90 10/12/16 20:00 97.8 91 18 94/47 100 10/12/16 16:00 97.4 96 18 98/57 97 10/12/16 12:00 97.0 94 18 115/57 97 10/12/16 08:00 97.8 96 18 107/54 96 I/O 10/12/16 10/12/16 10/12/16 10/13/16 10/13/16 10/13/16 07:00 15:00 23:00 07:00 15:00 23:00 Intake Total 190 ml 660 ml 360 ml 240 ml Output Total 300 ml 100 ml 200 ml Balance 190 ml 360 ml 260 ml 40 ml Intake Oral 100 ml 360 ml 360 ml 240 ml IV Total 90 ml 300 ml Output Urine Total 300 ml 100 ml 200 ml # Voids 1 # Bowel Movements 0 0 0 0 Result Diagram: 10/12/16 0554 10/13/16 0530 Imaging Last 24 hours Impressions Chest X-Ray 10/13/16599 Signed Impressions: Service Date/Time: Thursday, October 13, 2016 05:17 - CONCLUSION: 1. Right basilar airspace consolidation slightly increased from October 11. Left basilar airspace disease relatively stable. Bilateral effusions. Roshan Marion MD Objective Remarks GENERAL: Alert and cooperative SKIN: Warm and dry. HEAD: Normocephalic. EYES: No scleral icterus. No injection or drainage. NECK: Supple, trachea midline. No JVD or lymphadenopathy. CARDIOVASCULAR: Regular rate and rhythm without murmurs, gallops, or rubs. RESPIRATORY: Breath sounds with rhonchi. No accessory muscle use. O 2 liters GASTROINTESTINAL: Abdomen soft, non-tender, nondistended. MUSCULOSKELETAL: No cyanosis, or edema. BACK: Nontender without obvious deformity. No CVA tenderness. Medications and IVs Last 24 hours Impressions Chest X-Ray 10/13/16 0600 Signed Impressions: Service Date/Time: Thursday, October 13, 2016 05:17 - CONCLUSION: 1. Right basilar airspace consolidation slightly increased from October 11. Left basilar airspace disease relatively stable. Bilateral effusions. Roshan Marion MD Assessment and Plan Problem List: (1) Pleural effusion, right Status: Acute Plan: Thoracentesis per Dr Mcgregor. 2 liters removed tolerated well (2) Pulmonary infiltrate Status: Acute Plan: Azithromycin and Zosyn started discontinued per ID. Pulmonary consulted and managing. Chest Xray with right lung consolidation. (3) Dysphagia Status: Chronic Plan: Patient with esophageal cancer. Some dysphagia noted. Speech consulted to evaluate for possible aspiration (4) Neutropenia Status: Acute Plan: WBC 0.9 yesterday todays results pending. last chemo on Wednesday. Oncologist to consulted. (5) Anemia Status: Acute Plan: Monitoring (6) Back pain Status: Chronic Plan: Pain medication PRN (7) Edema Status: Acute Plan: GFR decreased to 36. Will discontinue lasix. Assessment and Plan Assessment and plan discussed with Candi Rosa Oct 13, 2016 07:10
[2016-10-13 07:30] LABS: BANDS 24 % (0-6); BASOPHILS 2 % (0-2); CORRECTED NUCLEATED RBC 3 /100 WBC (0-0); EOSINOPHILS 11 % (0-4); METAMYELOCYTES 9 % (0-1); MYELOCYTES 4 % (0-0); NEUTROPHIL # MANUAL DIFF 0.7 TH/MM3 (1.8-7.7); POLYS (SEG NEUTROPHILS) 29 % (16-70); WBC DIFF SAMPLE 100
[2016-10-13 07:31] LABS: PLATELET ESTIMATE SMEAR LOW (NORMAL); PLATELET MORPHOLOGY NORMAL (NORMAL); SCAN/DIFF FINAL DIFF MANUAL
[2016-10-13] MEDS: POTASSIUM CHLORIDE 20 MEQ CONTROLLED RELEASE TAB PO SCH (08:31)
[2016-10-13] MEDS ORDERED: FUROSEMIDE 20 MG TAB PO SCH (09:00)
[2016-10-13] MEDS: SODIUM CHLOR 0.9% 1000 ML INJ 1,000 ML IV SCH (12:26)
[2016-10-13] MEDS: PANTOPRAZOLE SODIUM 40 MG VIAL IV PUSH SCH (12:27)
[2016-10-13] MEDS: FILGRASTIM 300 MCG/ML VIAL SQ SCH (14:00)
--- NOTE | 2016-10-13 17:59 | MB ---
cc: JO ANN NOBLE M.D. DATE OF CONSULTATION 10/14/[address] Chin REASON FOR CONSULTATION Oncology consulted to render opinion regarding patient with metastatic esophageal cancer admitted with recurrent pleural effusion. HISTORY OF PRESENT ILLNESS The patient is a 71-year-old male with history of metastatic esophageal cancer admitted to the hospital with complaint of increased shortness of breath and dyspnea on surgeon. He has a history of a recurrent right pleural effusion and had multiple thoracentesis in the past. The cytology there has been negative and etiology of right pleural effusion is unclear. He recently was also found to have progression of metastatic esophageal cancer and was started on Cyramza and Taxol with a dose reduction. His last dose of Taxol was on October 06, 2016. He said that over the last few days he has increased weakness as well as shortness of breath. He denies any chest pain. He has had chronic dysphagia. When he came to the hospital, he was found to have a recurrent right pleural effusion. He had a thoracentesis with removal of two liters of hemorrhagic fluid on October 11. When I saw him, he was breathing better. However, he is still very weak. He also was noted to have neutropenia without any fever. He denies any mouth sore, denies any nausea or vomiting, abdominal pain, denies dysuria, hematuria. He has chronic hip pain which is about the same. PAST MEDICAL HISTORY 1. Metastatic esophageal cancer currently on treatment as above. 2. Hypertension. 3. Recurrent right pleural effusion 4. 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 5. Alcohol abuse. PAST SURGICAL HISTORY 1. Liver transplant 2. Port placement, 3. Appendectomy, 4. Hiatal hernia repair 5. Multiple thoracenteses 6. Tonsillectomy. ALLERGIES No known drug allergy. FAMILY HISTORY Noncontributory. SOCIAL HISTORY Denied tobacco use. He started drinking four to six drinks a day again. MEDICATIONS Current, 1. Potassium. 2. Protonix. REVIEW OF SYSTEMS CONSTITUTIONAL: He has increased weakness. EYES: Denies any blurry vision, double vision. ENT: No sore voice or voice changes. CARDIOVASCULAR: As above. RESPIRATORY: As above. GASTROINTESTINAL: Denies any nausea, vomiting, diarrhea or abdominal pain. : No dysuria, hematuria. MUSCULOSKELETAL: Has had right hip pain. HEMATOLOGIC: Negative. ENDOCRINE: Negative DERMATOLOGY: Negative. PSYCHIATRIC: Negative. NEUROLOGIC: Negative. PHYSICAL EXAMINATION VITAL SIGNS: Temperature 97.9, blood pressure 96/49, O2 saturation 91% room air. GENERAL: He is alert and oriented x3 in no acute distress. Looks very weak. HEENT: Atraumatic normocephalic. Pupils equal, round and reactive to light. Extraocular muscles intact. No scleral icterus. Oropharynx dry mucosa. No lesion or thrush. No mucositis. NECK: No thyromegaly. No palpable mass. LYMPHATICS: No palpable cervical, clavicular, axillary or inguinal lymph node CARDIOVASCULAR: Regular S1-S2 no murmur. LUNGS: Decreased breath sound bilaterally, more prominent on the right side, slight crackles. No wheezing. ABDOMEN: Soft, nontender. Could not palpate liver or spleen. EXTREMITIES: No cyanosis. Trace ankle edema. No calf tenderness, BACK: No paravertebral tenderness. SKIN: Decubitus ulcer. NEUROLOGIC: Generalized weakness but no focal deficit. LABORATORY DATA WBC 1.0, hemoglobin 9.1, platelet count 146, creatinine 1.87. ASSESSMENT 1. 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 He was treated with radiation with weekly carboplatin and Taxol at the end of 2014. He had good response. However, he was later found to have metastatic disease in the mediastinal lymph node and right inferior pubic ramus. He was treated with FOLFOX chemotherapy but did not tolerate it very well, and had to dose reduce the chemotherapy. He then received radiation to the mass in the right adductor muscle eroding through adjacent inferior pubic ramus. He was quite weak after the treatment and not able to receive any chemotherapy until a few weeks ago when he was started on Cyramza and Taxol. The chemotherapy dose was again reduced, however, he still could not tolerate it very well. He developed pancytopenia. He also had increased weakness. His last PET scan showed hypermetabolic mass in the right pelvis, distal esophagus as well as subcarinal lymph node consistent with progression of disease. His overall prognosis is poor. 2. Pancytopenia due to recent chemotherapy. His hemoglobin is stable, platelet count is trending up. He still has neutropenia without neutropenic fever. I am going to start him on the Neupogen. 3. History of recurrent pleural effusion. He had multiple thoracentesis and cytology were all negative. Recent PET scan did not show significant uptake in the thorax. He has now presented with worsening pleural effusion again. He had a thoracentesis and removal of two liters of fluid from the right lung. His breathing is a little better. 4. Generalized weakness due to his cancer recent treatment. 5. 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 He is not taking the immunosuppressive drugs anymore. 6. Alcohol abuse. He started drinking again. 7. Hypertension stable. RECOMMENDATIONS 1. Start him on Neupogen 2. Monitor CBC 3. Continue supportive care Thank you, Dr. Chin, for asking us see this patient. MD FAN Garay/ /5:03 PM /5:32 PM MTDD
--- NOTE | 2016-10-13 21:13 | MB ---
cc: J CARLOS YORK MD DATE OF CONSULTATION: 10/13/2016 REASON FOR CONSULTATION: Elevated BUN and creatinine, for evaluation. HISTORY OF PRESENT ILLNESS This is a 71-year-old male with past medical history of metastatic esophageal cancer, pleural effusion, history of cirrhosis, history of liver transplant, hypertension, was admitted with complaint of worsening shortness of breath. I was called to see the patient because of elevated BUN and creatinine. The patient has been in the hospital since October 11 and the creatinine on admission was 0.9 and it has gone up to 1.87 today. Yesterday it was 1.23. The patient denies any previous history of renal disease. He mainly came in here because of shortness of breath and he has a history of esophageal cancer and also has hip cancer and he is currently getting chemotherapy. The last dose was given about a week ago. He has mild cough. There is no sputum. The shortness of breath was mainly with exertion. There is no chest pain, no palpitation. In the hospital it was found that the patient has slight pleural effusion and also he was found to have neutropenia and anemia. Oncology has been consulted. He has pulmonary infiltrate and started on antibiotics including Zosyn and azithromycin but currently he is not on antibiotic. He also received two doses of Lasix one was yesterday and today it was written but I think it was stopped already. The patient is not eating well. He has decreased appetite. He denies any nausea, vomiting, no abdominal pain. Decrease in urine. The urine is dark in color. PAST MEDICAL HISTORY 1. Esophageal cancer 2. History of hip cancer. 3. Cirrhosis. 4. History of liver transplant. 5. Hypertension. PAST SURGICAL HISTORY History of liver transplant. REVIEW OF SYSTEMS The patient has been feeling tired, decreased appetite. There is shortness of breath mainly on exertion. There is mild cough, there is no chest pain, no palpitation. Denies nausea, vomiting. There is no history of diarrhea. No dysuria, hematuria. SOCIAL HISTORY: The patient lives with his friend who brought him here. He does not have any family. There is no history of smoking. He drinks about 4-6 drinks every day. ALLERGIES No known drug allergies. MEDICATIONS Currently he is on: 1. Normal saline at 84 mL 2. Potassium chloride 20 milliequivalents once a day. 3. Neupogen 100 micrograms subcu daily. 4. Protonix 40 milligrams q24 hours. 5. Magic Mouth Wash. 6. Percocet as needed. 7. Zofran as needed. 8. Restoril as needed. PHYSICAL EXAMINATION: GENERAL: The patient is awake, alert, not in acute distress. VITAL SIGNS: His last blood pressure was 112/50, temperature 98, oxygen saturation 98%. HEENT: Pupils equal and reacting to light. Nonicteric sclera. NECK: Supple. JVD is not elevated. LUNGS: Breath sounds bilaterally with scattered wheezing. HEART: S1-S2. Regular rhythm. ABDOMEN: Distended, soft, lax. EXTREMITIES: There is no pedal edema. INVESTIGATIONS: WBC count is 1.0, hemoglobin 9.1, platelet of 146, sodium is 136, potassium is 4.0, chloride 96, bicarb 31.3, BUN 36, creatinine 1.87. Glucose 121, calcium 8.7, AST 51, ALT 46, total bilirubin is 2.4, alkaline phosphatase 841, ammonia level is 42, total protein is 5.8, albumin 2.4, prealbumin 13. INR 1.0. Urinalysis, not done. IMAGING STUDIES The patient has chest x-ray done which shows that he has right basilar consolidation and bilateral effusion with left basilar airspace disease. ASSESSMENT/PLAN 1. Acute kidney injury 2. History of esophageal cancer. 3. Pleural effusion, and shortness of breath. 4. Pancytopenia with severe leukopenia. 5. Dehydration. 6. Malnutrition. Patient has acute kidney injury, most likely this is related to dehydration and there is the possibility of ATN also. Currently he is getting IV fluid. He has been nonoliguric. I will check the urine sodium osmolality and also get the urinalysis. Will get ultrasound of the kidney, also rule out any obstruction due to metastatic disease. Thank you for the consultation. I will follow the patient while he is in the hospital. MD YVROSE Johnson/SUPRIYA /7:31 PM /8:52 PM
--- NOTE | 2016-10-13 21:29 | MB ---
cc: TYRONE VILLALBA DATE OF CONSULTATION 10/12/2016 REASON FOR CONSULTATION Respiratory insufficiency with pleural effusions. HISTORY OF THE PRESENT ILLNESS This is a 71-year-old man with a history of metastatic carcinoma of the esophagus who was admitted with progressive dyspnea and wheezing and orthopnea. The patient was found to have a large right pleural effusion. He has had several thoracenteses done in the past. The patient did have a thoracentesis done at this time with removal of 2 liters of fluid in IR and he is now feeling more comfortable and is on oxygen via nasal cannula at 3 liters. The patient has been on chemotherapy for metastatic esophageal cancer. He has had some progressive weight loss and he has been dyspneic, even at rest, and has had dysphagia as well as aspiration. He denied any hemoptysis or abdominal pain or vomiting. Does have arthritis. PAST HISTORY Includes: 1. History of hypertension. 2. Metastatic carcinoma of the esophagus. 3. History of cirrhosis of the liver with liver transplant. 4. Ethanolism. PAST SURGICAL HISTORY Surgery includes: 1. Liver transplant. 2. History of appendectomy. 3. Hiatal hernia repair. 4. And tonsillectomy. ALLERGIES None listed. FAMILY HISTORY Noncontributory. SOCIAL HISTORY Habits, the patient does not smoke. Alcohol use quite regular. REVIEW OF SYSTEMS Systems review, the patient has lost weight. He has generalized weakness. He has leg swelling. Denies urinary symptoms. No headaches or blackouts. He has some anxiety, depression and epigastric distress and bloating. The other system review is negative. PHYSICAL EXAMINATION GENERAL: This averagely built, elderly white male who is alert, pale and mildly dyspneic at rest. VITAL SIGNS: Blood pressure 110/60, pulse is 80, respirations 22, temperature 98.2. HEENT: Head normocephalic. Pupils are reactive. Sclerae are injected. Tongue is moist. Throat clear. NECK: Supple. No venous distension. No thyromegaly or lymphadenopathy. CHEST: Decreased breath sounds at the bases and crackles at both lung bases. Occasional wheezes are heard. CARDIOVASCULAR: Heart sounds are regular S1-S2. No murmur. No S3. ABDOMEN: Protuberant, soft with liver just felt below the costal margin. The bowel sounds are active. EXTREMITIES: Mild edema with diminished peripheral pulses. Reflexes are 1+ with no gross motor deficits. SKIN: No lesions observed. IMPRESSION 1. Recurrent large right pleural effusion. 2. Small left pleural effusion and atelectasis. 3. 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 4. History of liver transplant. 5. History of cirrhosis of the liver. 6. Hypertension. PLAN The patient will be placed on O2 at 2 liters. Incentive spirometry added q.i.d. Nebulized DuoNeb solution added t.i.d. Repeat chest x-ray to be done and ultrasound examination of the left chest to see if there is any reaccumulation of fluid. The patient will be given an expectorant if necessary and his white count is being monitored and antibiotic therapy will be started if there are any signs of infection. Thank you Dr. Mayer for this consultation. Tyrone Villalba MD JJOLENE/TALI /8:12 PM /9:16 PM
[2016-10-13] MEDS: NYSTAT/DIPHENHY/LIDO MOUTHWASH (Adult) 120ML SWISH-SWAL SCH (21:59)
[2016-10-14] VITALS (8 sets, daily range): BP systolic 101–116; BP diastolic 49–55; PULSE 93–103; RESP 18–24; TEMP 96.2–98.1; O2SAT 93–99
[2016-10-14] MEDS: CHLORHEXIDINE GLUCONATE 2 % 1 PACK (2 CLOTHS) TOP SCH (05:40)
--- NOTE | 2016-10-14 06:45 | HHI.PR ---
Subjective Remarks Patient seen at bedside. Denies and CP or SOB. Reports that is is feeling stronger. Objective Vital Signs Date Time Temp Pulse Resp B/P Pulse Ox O2 Delivery O2 Flow Rate FiO2 10/14/16 04:00 97.8 93 20 105/55 97 10/14/16 00:00 98.0 97 24 101/49 99 10/13/16 20:00 98.4 93 22 102/52 99 10/13/16 20:00 98.4 93 22 102/52 99 10/13/16 18:00 91 10/13/16 16:00 98.0 107 18 112/50 98 10/13/16 12:00 97.9 97 18 96/49 91 10/13/16 09:23 96 Nasal Cannula 2.00 10/13/16 08:00 98.3 93 18 110/53 100 I/O 10/13/16 10/13/16 10/13/16 10/14/16 10/14/16 10/14/16 07:00 15:00 23:00 07:00 15:00 23:00 Intake Total 240 ml 744 ml 432 ml Output Total 200 ml 400 ml Balance 40 ml 344 ml 432 ml Intake Oral 240 ml 360 ml 240 ml IV Total 384 ml 192 ml Output Urine Total 200 ml 400 ml # Voids 0 # Bowel Movements 0 0 1 Result Diagram: 10/13/16 0530 10/13/16 0530 Imaging Last 48 hours Impressions Chest X-Ray 10/13/16 0600 Signed Impressions: Service Date/Time: Thursday, October 13, 2016 05:17 - CONCLUSION: 1. Right basilar airspace consolidation slightly increased from October 11. Left basilar airspace disease relatively stable. Bilateral effusions. Roshan Marion MD Objective Remarks GENERAL: Alert and cooperative SKIN: Warm and dry. HEAD: Normocephalic. EYES: No scleral icterus. No injection or drainage. NECK: Supple, trachea midline. No JVD or lymphadenopathy. CARDIOVASCULAR: Regular rate and rhythm without murmurs, gallops, or rubs. RESPIRATORY: Breath sounds with rhonchi. No accessory muscle use. O 2 liters GASTROINTESTINAL: Abdomen soft, non-tender, nondistended. MUSCULOSKELETAL: No cyanosis, or edema. BACK: Nontender without obvious deformity. No CVA tenderness. Medications and IVs Current Medications Medications (Trade) Dose Ordered Sig/Lucita Route Start Time Stop Time Status Last Admin (NS Flush) 2 ml UNSCH PRN IVF 10/10/16 23:15 10/12/16 08:23 (Tylenol) 650 mg Q6H PRN PO 10/10/16 23:15 (Percocet 5-325 Mg) 1 tab Q4H PRN PO 10/10/16 23:15 10/13/16 04:13 (Zofran Inj) 4 mg Q6H PRN IV 10/10/16 23:15 (Milk Of Magnesia Liq) 30 ml Q12H PRN PO 10/10/16 23:15 (Restoril) 15 mg HS PRN PO 10/10/16 23:15 10/11/16 21:12 Miscellaneous Information 1 [id number] XX 10/10/16 23:15 (Chlorhexidine 2% Cloth) 3 pack Taper DAILY@04 TOP 10/11/16 04:00 10/07/17 03:59 (Chlorhexidine 2% Cloth) 3 pack UNSCH PRN TOP 10/10/16 23:15 (Protonix Inj) 40 mg Q24H IV PUSH 10/11/16 13:00 10/13/16 12:27 Potassium Chloride 20 meq 20 meq DAILY PO 10/12/16 09:00 10/13/16 08:31 (NS 1000 ml Inj) 1,000 ml @ 84 mls/hr [id number] IV 10/13/16 11:45 10/13/16 12:26 (Neupogen Inj) 300 mcg DAILY@14 SQ 10/13/16 14:00 10/13/16 14:00 (Magic Mouthwash Adult Liq) 5 ml QID SWISH-SWAL 10/13/16 21:00 10/13/16 21:59 Assessment and Plan Problem List: (1) Pleural effusion, right Status: Resolved Plan: Thoracentesis per Dr Mcgregor. 2 liters removed tolerated well (2) Pulmonary infiltrate Status: Acute Plan: Pulmonary consulted and managing. Chest Xray with airspace consolidation slightly increased in size since 10/11. Bilateral effusions (3) Dysphagia Status: Chronic Plan: Patient with esophageal cancer. Some dysphagia noted. Speech consulted to evaluate for possible aspiration (4) Neutropenia Status: Acute Plan: WBC results pending. last chemo X 1 week ago. Oncologist to consulted and Neupogen given (5) Anemia Status: Acute Plan: Stable and monitoring (6) Back pain Status: Chronic Plan: Pain medication PRN (7) Wound of buttock Status: Acute Plan: Patient presents with areas of moisture related skin loss. Partial thickness. Recommend to keep patient clean and dry. Incontinent of urine. Barrier cream. Patient applied (8) TRINI (acute kidney injury) Status: Acute Plan: Lab results pending for today. Nephrology consulted. US ordered. IVF running. Assessment and Plan Assessment and plan discussed with Dr. Mayer Discharge Planning Plan will be to discharge to rehab Candi Chin Oct 14, 2016 06:45
[2016-10-14 07:07] LABS: BICARBONATE 29.4 MEQ/L (21.0-32.0); POTASSIUM 4.1 MEQ/L (3.5-5.1)
[2016-10-14 07:09] LABS: AUTOMATED NEUTROPHIL # 0.4 TH/MM3 (1.8-7.7); BASOPHIL % 0.9 % (0.0-2.0); EOSINOPHIL # 0.1 TH/MM3 (0-0.4); EOSINOPHIL % 7.8 % (0.0-4.0); HEMATOCRIT 22.9 % (39.0-51.0); LYMPH % 13.4 % (9.0-44.0); LYMPHOCYTE # 0.1 TH/MM3 (1.0-4.8); MEAN CELL VOLUME 95.7 FL (80.0-100.0); MEAN CORPUSCULAR HEMOGLOBIN 33.9 PG (27.0-34.0); MEAN CORPUSCULAR HGB CONC 35.4 % (32.0-36.0); MONO % 19.2 % (0.0-8.0); NEUT % 58.7 % (16.0-70.0); PLATELET COUNT 144 TH/MM3 (150-450); RED BLOOD COUNT 2.39 MIL/MM3 (4.50-5.90); RED CELL DISTRIBUTION WIDTH 13.7 % (11.6-17.2); WHITE BLOOD COUNT 0.7 TH/MM3 (4.0-11.0)
[2016-10-14 07:12] LABS: HEMO FLAGS AUTO DIFF
--- NOTE | 2016-10-14 07:47 | PD.ONC.PN ---
Subjective Subjective Remarks +weakness. No CP. SOB/ORTEGA about the same. No abdominal pain. Objective Data Date Time Temp Pulse Resp B/P Pulse Ox O2 Delivery O2 Flow Rate FiO2 10/14/16 04:00 97.8 93 20 105/55 97 10/14/16 00:00 98.0 97 24 101/49 99 10/13/16 20:00 98.4 93 22 102/52 99 10/13/16 20:00 98.4 93 22 102/52 99 10/13/16 18:00 91 10/13/16 16:00 98.0 107 18 112/50 98 10/13/16 12:00 97.9 97 18 96/49 91 10/13/16 09:23 96 Nasal Cannula 2.00 10/13/16 08:00 98.3 93 18 110/53 100 10/14/16 10/14/16 10/14/16 07:00 15:00 23:00 Intake Total 0 ml Output Total 225 ml Balance -225 ml Result Diagram: 10/14/1661910/14/16 0620 Laboratory Results Laboratory Tests Test 10/14/16 06:20 White Blood Count 0.7 TH/MM3 Red Blood Count 2.39 MIL/MM3 Hemoglobin 8.1 GM/DL Hematocrit 22.9 % Mean Corpuscular Volume 95.7 FL Mean Corpuscular Hemoglobin 33.9 PG Mean Corpuscular Hemoglobin 35.4 % Concent Red Cell Distribution Width 13.7 % Platelet Count 144 TH/MM3 Mean Platelet Volume 9.8 FL Neutrophils (%) (Auto) 58.7 % Lymphocytes (%) (Auto) 13.4 % Monocytes (%) (Auto) 19.2 % Eosinophils (%) (Auto) 7.8 % Basophils (%) (Auto) 0.9 % Neutrophils # (Auto) 0.4 TH/MM3 Lymphocytes # (Auto) 0.1 TH/MM3 Monocytes # (Auto) 0.1 TH/MM3 Eosinophils # (Auto) 0.1 TH/MM3 Basophils # (Auto) 0.0 TH/MM3 CBC Comment AUTO DIFF Sodium Level 138 MEQ/L Potassium Level 4.1 MEQ/L Chloride Level 100 MEQ/L Carbon Dioxide Level 29.4 MEQ/L Anion Gap 9 MEQ/L Blood Urea Nitrogen 36 MG/DL Creatinine 1.94 MG/DL Estimat Glomerular Filtration 34 ML/MIN Rate Random Glucose 113 MG/DL Calcium Level 8.2 MG/DL Administered Medications Medications (Trade) Dose Ordered Sig/Lucita Route PRN Reason Start Time Stop Time Status Last Admin Dose Admin Sodium Chloride (NS Flush) 2 ml UNSCH PRN IVF FLUSH AFTER USING IV ACCESS 10/10/16 23:15 10/12/16 08:23 Oxycodone/ Acetaminophen (Percocet 5-325 Mg) 1 tab Q4H PRN PO PAIN SCALE 1 TO 5 10/10/16 23:15 10/13/16 04:13 Temazepam (Restoril) 15 mg HS PRN PO INSOMNIA 10/10/16 23:15 10/11/16 21:12 Pantoprazole Sodium (Protonix Inj) 40 mg Q24H IV PUSH 10/11/16 13:00 10/13/16 12:27 Potassium Chloride 20 meq 20 meq DAILY PO 10/12/16 09:00 10/13/16 08:31 Sodium Chloride (NS 1000 ml Inj) 1,000 ml @ 84 mls/hr [id number] IV 10/13/16 11:45 10/13/16 12:26 Filgrastim (Neupogen Inj) 300 mcg DAILY@14 SQ 10/13/16 14:00 10/13/16 14:00 Multi-Ingredient Mouthwash/Gargle (Magic Mouthwash Adult Liq) 5 ml QID SWISH-SWAL 10/13/16 21:00 10/13/16 21:59 Objective Remarks GENERAL: Well-nourished, well-developed patient. Weak. SKIN: Warm and dry. HEAD: Normocephalic. EYES: No scleral icterus. No injection or drainage. NECK: Supple, trachea midline. No JVD or lymphadenopathy. LYMPHATIC: No adenopathy. CARDIOVASCULAR: Regular rate and rhythm without murmurs. RESPIRATORY: Breath sounds bibasilar crackles. No accessory muscle use. GASTROINTESTINAL: Abdomen soft, non-tender, nondistended. EXTREMITIES: No cyanosis, or edema. MUSCULOSKELETAL: Adequate muscle tone. NEUROLOGICAL: No obvious focal deficit. Awake, alert, and oriented x3. PSYCHIATRIC: Appropriate mood and affect; insight and judgment normal. Assessment/Plan Assessment 1. 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 He was treated with radiation with weekly carboplatin and Taxol at the end of 2014. He had good response. However, he was later found to have metastatic disease in the mediastinal lymph node and right inferior pubic ramus. He was treated with FOLFOX chemotherapy but did not tolerate it very well, and had to dose reduce the chemotherapy. He then received radiation to the mass in the right adductor muscle eroding through adjacent inferior pubic ramus. He was quite weak after the treatment and not able to receive any chemotherapy. His last PET scan showed hypermetabolic mass in the right pelvis , distal esophagus and subcarinal lymph node consistent with progression of disease. He was started on Cyramza and Taxol a few weeks ago. The chemotherapy dose was again reduced, however, he still could not tolerate it very well. He developed pancytopenia. He also had increased weakness. His overall prognosis is poor. 2. Pancytopenia due to recent chemotherapy. His hemoglobin is stable, platelet count is trending up. He still has neutropenia without neutropenic fever. Neupogen was started 10/13/16. 3. History of recurrent pleural effusion. He had multiple thoracentesis and cytology were all negative. Recent PET scan did not show significant uptake in the thorax. He has now presented with worsening pleural effusion again. He had a thoracentesis and removal of two liters of fluid from the right lung . His breathing is a little better. 4. Generalized weakness due to his cancer recent treatment. 5. 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 He is not taking the immunosuppressive drugs anymore. 6. Alcohol abuse. He started drinking again. 7. Hypertension, stable. 8. Acute renal failure. Plan RECOMMENDATIONS 1. Continue Neupogen 2. Monitor CBC 3. Continue supportive care. Piyush Pruitt MD Oct 14, 2016 07:47
[2016-10-14] MEDS: POTASSIUM CHLORIDE 20 MEQ CONTROLLED RELEASE TAB PO SCH (08:24)
[2016-10-14] MEDS: NYSTAT/DIPHENHY/LIDO MOUTHWASH (Adult) 120ML SWISH-SWAL SCH ×4 (08:24→21:23)
[2016-10-14 09:08] LABS: BANDS 19 % (0-6); BASOPHILS 1 % (0-2); CORRECTED NUCLEATED RBC 1 /100 WBC (0-0); EOSINOPHILS 11 % (0-4); POLYS (SEG NEUTROPHILS) 38 % (16-70); WBC DIFF SAMPLE 100
[2016-10-14 09:12] LABS: OVALOCYTES 1+ (NORMAL); PLATELET ESTIMATE SMEAR LOW (NORMAL); PLATELET MORPHOLOGY NORMAL (NORMAL); SCAN/DIFF FINAL DIFF MANUAL
[2016-10-14 09:14] LABS: NEUTROPHIL # MANUAL DIFF 0.4 TH/MM3 (1.8-7.7)
[2016-10-14] MEDS: SODIUM CHLOR 0.9% 1000 ML INJ 1,000 ML IV SCH ×2 (11:35→13:30)
--- NOTE | 2016-10-14 12:05 | HHI.NPPN ---
Subjective History of Present Illness 71-year-old male with past medical history of metastatic esophageal cancer, pleural effusion, history of cirrhosis, history of liver transplant, hypertension, was admitted with complaint of worsening shortness of breath. I was called to see the patient because of elevated BUN and creatinine. The patient has been in the hospital since October 11 and the creatinine on admission was 0.9 and it has increased. Additional Remarks Patient is alert, sitting on chair, feeling weak, no SOB. Review of Systems General Constitutional: Fatigue, Weight Change Cardiovascular Cardiac: ORTEGA Objective Data Data 10/13/16 10/14/16 19:00 07:00 Intake Total 936 ml 240 ml Output Total 400 ml 225 ml Balance 536 ml 15 ml Intake Oral 360 ml 240 ml IV Total 576 ml Output Urine Total 400 ml 225 ml # Voids 0 # Bowel Movements 0 3 Vital Signs Date Time Temp Pulse Resp B/P Pulse Ox O2 Delivery O2 Flow Rate FiO2 10/14/16 09:57 96 Nasal Cannula 2.00 10/14/16 08:00 98.1 103 20 112/53 93 10/14/16 04:00 97.8 93 20 105/55 97 10/14/16 00:00 98.0 97 24 101/49 99 10/13/16 20:00 98.4 93 22 102/52 99 10/13/16 20:00 98.4 93 22 102/52 99 10/13/16 18:00 91 10/13/16 16:00 98.0 107 18 112/50 98 -: 10/14/16 0620 10/14/16 0620 Physical Exam General Appearance: No Acute Distress, Anxious, Malnourished Eyes Eye Exam: Pupils Equal Throat Throat Exam: Oral Mucosa [place] & Moist Neck Neck Exam: Neck Supple, Trachea Midline Pulmonary Resp Exam: Breath Sounds Equal, Rhonchi, Decreased Bases Cardiology CV Exam: Regular, Normal Sinus Rhythm Gastrointestinal/Abdomen GI Exam: Soft, Non-Tender, Bowel Sounds Present, Distended Extremeties Extremities Exam: Trace Edema Neurologic Neuro Exam: Alert, Awake, Oriented Psychiatric Psych Exam: Appropriate Responses Assessment/Plan Assessment Summary: TRINI/Acute Renal Failure, Dehydration Problem List: (1) Esophageal cancer (2) Anemia and thrombocytopenia (3) Pleural effusion (4) Neutropenia (5) Pleural effusion, right (6) Wound of buttock (7) TRINI (acute kidney injury) Plan Patient has low urine out put. Check urine Na., osm. and Eosinophils. Continue gentle hydration. Creatinine still increasing. Possibly has ATN. Avoid Nephrotoxins. Follow urine out put and BMP. Florecita Guevara MD Oct 14, 2016 12:05
[2016-10-14] MEDS: PANTOPRAZOLE SODIUM 40 MG VIAL IV PUSH SCH (13:31)
[2016-10-14] MEDS: FILGRASTIM 300 MCG/ML VIAL SQ SCH (13:32)
--- NOTE | 2016-10-14 16:29 | RADRPT ---
EXAM DATE/TIME: 10/14/2016 14:45 [facility] COMPARISON: No previous studies available for comparison. EXTERNAL COMPARISON : [facility], PET CT/Tumor, September 14, 2016[facility], CT Abdomen, 06/09/16. [facility], PET/CT Tumor, 08/27. [facility], CTA Abdomen, 02/08/2015. [facility], PET/CT Tumor, 01/31/15. INDICATIONS : Increased Bun and Creatine. MEDICAL HISTORY : Hypertension. Cirrhosis. Esophogeal cancer. SURGICAL HISTORY : Appendectomy. Liver transplant. Hiatel hernia. ENCOUNTER: Initial ACUITY: 1 day PAIN SCORE: 6/10 LOCATION: Bilateral flank MEASUREMENTS: RIGHT KIDNEY: 9.8 x 4.8 x 5.9 cm LEFT KIDNEY: 10.7 x 4.9 x 4.9 cm FINDINGS: Ultrasound of the kidneys demonstrate normal size shape and echogenicity. No hydronephrosis or mass l esions are identified. Bilateral effusions are present the bladder cannot be visualized secondary to voiding. CONCLUSION: 1. No evidence of obstruction 2. Bilateral effusions Jovany Paniagua MD on October 14, 2016 at 16:27 Board Certified Radiologist. This report was verified electronically.
--- NOTE | 2016-10-14 19:33 | HHI.PR ---
Subjective Remarks He is alert and breathing better. Off O2 sat 95. No cough . Objective Vital Signs Date Time Temp Pulse Resp B/P Pulse Ox O2 Delivery O2 Flow Rate FiO2 10/14/16 19:00 97.7 98 22 112/51 98 10/14/16 16:00 96.8 99 18 116/52 96 10/14/16 12:00 96.2 99 20 104/50 99 10/14/16 09:57 96 Nasal Cannula 2.00 10/14/16 08:00 98.1 103 20 112/53 93 10/14/16 04:00 97.8 93 20 105/55 97 10/14/16 00:00 98.0 97 24 101/49 99 10/13/16 20:00 98.4 93 22 102/52 99 10/13/16 20:00 98.4 93 22 102/52 99 I/O 10/13/16 10/13/16 10/13/16 10/14/16 10/14/16 10/14/16 07:00 15:00 23:00 07:00 15:00 23:00 Intake Total 240 ml 744 ml 432 ml 0 ml 360 ml 2053 ml Output Total 200 ml 400 ml 225 ml 250 ml Balance 40 ml 344 ml 432 ml -225 ml 110 ml 2053 ml Intake Oral 240 ml 360 ml 240 ml 0 ml 360 ml IV Total 384 ml 192 ml 2053 ml Output Urine Total 200 ml 400 ml 225 ml 250 ml # Voids 0 # Bowel Movements 0 0 1 2 0 Result Diagram: 10/14/16 0620 10/14/16 0620 Objective Remarks GENERAL: This averagely built, elderly white male who is alert, pale and mildly dyspneic at rest. HEENT: Head normocephalic. Pupils are reactive. Sclerae are clear Tongue is moist. Throat clear. NECK: Supple. No venous distension. No thyromegaly or lymphadenopathy. CHEST: Decreased breath sounds at the bases and occ crackles at both lung bases. Occasional wheezes are heard. CARDIOVASCULAR: Heart sounds are regular S1-S2. No murmur. No S3. ABDOMEN: Protuberant, soft with liver just felt below the costal margin. The bowel sounds are active. EXTREMITIES: Mild edema with diminished peripheral pulses. Reflexes are 1+ with no gross motor deficits. SKIN: No lesions observed. Assessment and Plan Assessment and Plan IMPRESSION 1. Recurrent large right pleural effusion. 2. Small left pleural effusion and atelectasis. 3. 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 4. History of liver transplant. 5. History of cirrhosis of the liver. 6. Hypertension. Plan : 1. Wean O2 to keep sat >92. 2. Continue nebs qid , duoneb 3. Cont diuretics. 4. Neulasta per Dr Pruitt. 5. CBC,BMP in am 6. Chest X ray in am Abhi Villalba MD Oct 14, 2016 19:33
[2016-10-15] VITALS (8 sets, daily range): BP systolic 92–142; BP diastolic 50–79; PULSE 97–113; RESP 20–22; TEMP 97.1–98.4; O2SAT 95–100
[2016-10-15] MEDS: TEMAZEPAM 15 MG CAP PO PRN (00:48)
[2016-10-15] MEDS: RESP: ALBUTEROL 2.5 MG/IPRATROPIUM 0.5 MG NEB (PRN) INH (00:56)
[2016-10-15] MEDS: CHLORHEXIDINE GLUCONATE 2 % 1 PACK (2 CLOTHS) TOP SCH (04:00)
--- NOTE | 2016-10-15 06:42 | HHI.PR ---
Subjective Remarks Alert and oriented. Denies and CP or SOB. Objective Vital Signs Date Time Temp Pulse Resp B/P Pulse Ox O2 Delivery O2 Flow Rate FiO2 10/15/16 04:00 97.8 100 20 118/79 10/15/16 00:56 99 Nasal Cannula 3.00 10/15/16 00:01 97.4 97 20 107/59 98 10/14/16 20:07 94 10/14/16 19:00 97.7 98 22 112/51 98 10/14/16 16:00 96.8 99 18 116/52 96 10/14/16 12:00 96.2 99 20 104/50 99 10/14/16 09:57 96 Nasal Cannula 2.00 10/14/16 08:00 98.1 103 20 112/53 93 I/O 10/14/16 10/14/16 10/14/16 10/15/16 10/15/16 10/15/16 07:00 15:00 23:00 07:00 15:00 23:00 Intake Total 0 ml 360 ml 2633 ml 560 ml Output Total 225 ml 250 ml 300 ml 200 ml Balance -225 ml 110 ml 2333 ml 360 ml Intake Oral 0 ml 360 ml 240 ml 240 ml IV Total 2393 ml 320 ml Output Urine Total 225 ml 250 ml 300 ml 200 ml # Bowel Movements 2 0 Result Diagram: 10/14/16 0620 10/14/16 0620 Imaging Last 48 hours Impressions Renal Ultrasound 10/14/16 0000 Signed Impressions: Service Date/Time: Friday, October 14, 2016 14:45 - CONCLUSION: 1. No evidence of obstruction 2. Bilateral effusions Jovany Paniagua MD Objective Remarks GENERAL: Alert and cooperative SKIN: Warm and dry. HEAD: Normocephalic. EYES: No scleral icterus. No injection or drainage. NECK: Supple, trachea midline. No JVD or lymphadenopathy. CARDIOVASCULAR: Regular rate and rhythm. Murmur present. RESPIRATORY: Breath sounds with rhonchi. No accessory muscle use. O 2 liters GASTROINTESTINAL: Abdomen soft, non-tender, nondistended. MUSCULOSKELETAL: No cyanosis, or edema. BACK: Nontender without obvious deformity. No CVA tenderness. Medications and IVs Current Medications Medications (Trade) Dose Ordered Sig/Lucita Route Start Time Stop Time Status Last Admin (NS Flush) 2 ml UNSCH PRN IVF 10/10/16 23:15 10/12/16 08:23 (Tylenol) 650 mg Q6H PRN PO 10/10/16 23:15 (Percocet 5-325 Mg) 1 tab Q4H PRN PO 10/10/16 23:15 10/13/16 04:13 (Zofran Inj) 4 mg Q6H PRN IV 10/10/16 23:15 (Milk Of Magnesia Liq) 30 ml Q12H PRN PO 10/10/16 23:15 (Restoril) 15 mg HS PRN PO 10/10/16 23:15 10/15/16 00:48 Miscellaneous Information 1 [id number] XX 10/10/16 23:15 (Chlorhexidine 2% Cloth) 3 pack Taper DAILY@04 TOP 10/11/16 04:00 10/07/17 03:59 (Chlorhexidine 2% Cloth) 3 pack UNSCH PRN TOP 10/10/16 23:15 (Protonix Inj) 40 mg Q24H IV PUSH 10/11/16 13:00 10/14/16 13:31 Potassium Chloride 20 meq 20 meq DAILY PO 10/12/16 09:00 10/14/16 08:24 (NS 1000 ml Inj) 1,000 ml @ 42 mls/hr [id number] IV 10/13/16 11:45 10/14/16 11:35 (Neupogen Inj) 300 mcg DAILY@14 SQ 10/13/16 14:00 10/14/16 13:32 (Magic Mouthwash Adult Liq) 5 ml QID SWISH-SWAL 10/13/16 21:00 10/14/16 21:23 Assessment and Plan Problem List: (1) Pleural effusion, right Status: Resolved Plan: Thoracentesis per Dr Mcgregor. 2 liters removed tolerated well (2) Pulmonary infiltrate Status: Acute Plan: Pulmonary consulted and managing. Chest Xray ordered for today (3) Dysphagia Status: Chronic Plan: Patient with esophageal cancer. Some dysphagia noted. Speech consulted to evaluate for possible aspiration (4) Neutropenia Status: Acute Plan: WBC results pending. Oncologist to consulted and Neupogen given (5) Anemia Status: Acute Plan: Stable HGB down to 8.1 yesterday. (6) Back pain Status: Chronic Plan: Pain medication PRN (7) Wound of buttock Status: Acute Plan: Patient presents with areas of moisture related skin loss. Partial thickness. Recommend to keep patient clean and dry. Incontinent of urine. Barrier cream. Patient applied (8) TRINI (acute kidney injury) Status: Acute Plan: Lab results pending for today. Nephrology consulted. Kidney US done Assessment and Plan Assessment and plan discussed with Candi Rosa Oct 15, 2016 06:42
[2016-10-15 08:14] LABS: HEMATOCRIT 28.7 % (39.0-51.0); MEAN CELL VOLUME 97.2 FL (80.0-100.0); MEAN CORPUSCULAR HEMOGLOBIN 32.5 PG (27.0-34.0); MEAN CORPUSCULAR HGB CONC 33.4 % (32.0-36.0); PLATELET COUNT 192 TH/MM3 (150-450); RED BLOOD COUNT 2.95 MIL/MM3 (4.50-5.90); RED CELL DISTRIBUTION WIDTH 13.9 % (11.6-17.2); WHITE BLOOD COUNT 3.2 TH/MM3 (4.0-11.0)
[2016-10-15 08:30] LABS: BICARBONATE 22.8 MEQ/L (21.0-32.0)
[2016-10-15 08:34] LABS: POTASSIUM 5.8 MEQ/L (3.5-5.1)
--- NOTE | 2016-10-15 09:04 | RADRPT ---
EXAM DATE/TIME: 10/15/2016 07:54 [facility] COMPARISON: CHEST SINGLE AP, October 13, 2016, 5:17. INDICATIONS : Short of breateh, effusion MEDICAL HISTORY : Carcinoma, esophageal. Cirrhosis. Hypertension. SURGICAL HISTORY : Appendectomy. Tonsillectomy. liver transplant, infusaport, thoracentesis ENCOUNTER: Subsequent ACUITY: 4 - 6 days PAIN SCORE: 0/10 LOCATION: chest FINDINGS: The cardiac silhouette is enlarged in transverse diameter. [id number] is in place via right internal specialist al jugular approach with its tip in the superior vena cava. There is prominence of the aortic knob is with calcification characteristic of atherosclerotic vascular disease. Moderate size bilateral pleur al effusions are identified. CONCLUSION: 1. Cardiomegaly and findings of congestive heart failure. There has been no significant change when c ompared to the prior exam. 2. Moderate bilateral effusions Jovany Paniagua MD on October 15, 2016 at 9:01 Board Certified Radiologist. This report was verified electronically.
[2016-10-15] MEDS: POTASSIUM CHLORIDE 20 MEQ CONTROLLED RELEASE TAB PO SCH (09:12)
[2016-10-15] MEDS: NYSTAT/DIPHENHY/LIDO MOUTHWASH (Adult) 120ML SWISH-SWAL SCH ×4 (09:14→20:40)
[2016-10-15 09:19] LABS: HEMO FLAGS AUTO DIFF
[2016-10-15] MEDS: oxyCODONE/ACETAMINOPHEN 5 MG/325 MG TAB PO PRN (09:21)
[2016-10-15 10:00] LABS: BANDS 21 % (0-6); CORRECTED NUCLEATED RBC 7 /100 WBC (0-0); EOSINOPHILS 1 % (0-4); POLYS (SEG NEUTROPHILS) 42 % (16-70); WBC DIFF SAMPLE 100
[2016-10-15 10:01] LABS: OVALOCYTES 1+ (NORMAL); PLATELET ESTIMATE SMEAR NORMAL (NORMAL); PLATELET MORPHOLOGY ENLARGED (NORMAL); SCAN/DIFF FINAL DIFF MANUAL
--- NOTE | 2016-10-15 10:46 | HHI.NPPN ---
Subjective History of Present Illness 71-year-old male with past medical history of metastatic esophageal cancer, pleural effusion, history of cirrhosis, history of liver transplant, hypertension, was admitted with complaint of worsening shortness of breath. I was called to see the patient because of elevated BUN and creatinine. The patient has been in the hospital since October 11 and the creatinine on admission was 0.9 and it has increased. Additional Remarks Patient is alert, no SOB, not in distress. Review of Systems General Constitutional: Fatigue, Weight Change Cardiovascular Cardiac: ORTEGA Objective Data Data 10/14/16 10/15/16 19:00 07:00 Intake Total 2413 ml 1140 ml Output Total 250 ml 500 ml Balance 2163 ml 640 ml Intake Oral 360 ml 480 ml IV Total 2053 ml 660 ml Output Urine Total 250 ml 500 ml # Bowel Movements 0 Vital Signs Date Time Temp Pulse Resp B/P Pulse Ox O2 Delivery O2 Flow Rate FiO2 10/15/16 08:00 97.9 108 20 132/61 98 10/15/16 04:00 97.8 100 20 118/79 10/15/16 00:56 99 Nasal Cannula 3.00 10/15/16 00:01 97.4 97 20 107/59 98 10/14/16 20:07 94 10/14/16 19:00 97.7 98 22 112/51 98 10/14/16 16:00 96.8 99 18 116/52 96 10/14/16 12:00 96.2 99 20 104/50 99 -: 10/15/16 0550 10/15/16 0550 Physical Exam General Appearance: No Acute Distress, Anxious, Malnourished Eyes Eye Exam: Pupils Equal Throat Throat Exam: Oral Mucosa [place] & Moist Neck Neck Exam: Neck Supple, Trachea Midline Pulmonary Resp Exam: Breath Sounds Equal, Rhonchi, Decreased Bases Cardiology CV Exam: Regular, Normal Sinus Rhythm Gastrointestinal/Abdomen GI Exam: Soft, Non-Tender, Bowel Sounds Present, Distended Extremeties Extremities Exam: Trace Edema Neurologic Neuro Exam: Alert, Awake, Oriented Psychiatric Psych Exam: Appropriate Responses Assessment/Plan Assessment Summary: TRINI/Acute Renal Failure, Dehydration Problem List: (1) Esophageal cancer (2) Anemia and thrombocytopenia (3) Pleural effusion (4) Neutropenia (5) Pleural effusion, right (6) Wound of buttock (7) TRINI (acute kidney injury) Plan Patient has low urine out put. Check urine Na., osm. and Eosinophils, still not done. Continue gentle hydration. Creatinine slightly better. Possibly has ATN. Avoid Nephrotoxins. Follow urine out put and BMP. Florecita Guevara MD Oct 15, 2016 10:46
[2016-10-15] MEDS: PANTOPRAZOLE SODIUM 40 MG VIAL IV PUSH SCH (14:18)
[2016-10-15] MEDS: FILGRASTIM 300 MCG/ML VIAL SQ SCH (14:20)
--- NOTE | 2016-10-15 17:45 | PD.ONC.PN ---
Subjective Subjective Remarks Late entry. Saw pt 0720. +SOB. +weakness. Objective Data Date Time Temp Pulse Resp B/P Pulse Ox O2 Delivery O2 Flow Rate FiO2 10/15/16 08:00 97.9 108 20 132/61 98 10/15/16 04:00 97.8 100 20 118/79 10/15/16 00:56 99 Nasal Cannula 3.00 10/15/16 00:01 97.4 97 20 107/59 98 10/14/16 20:07 94 10/14/16 19:00 97.7 98 22 112/51 98 10/15/16 10/15/16 10/15/16 07:00 15:00 23:00 Intake Total 560 ml Output Total 200 ml Balance 360 ml Result Diagram: 10/15/16 0550 10/15/16 0550 Laboratory Results Laboratory Tests Test 10/15/16 05:50 White Blood Count 3.2 TH/MM3 Red Blood Count 2.95 MIL/MM3 Hemoglobin 9.6 GM/DL Hematocrit 28.7 % Mean Corpuscular Volume 97.2 FL Mean Corpuscular Hemoglobin 32.5 PG Mean Corpuscular Hemoglobin 33.4 % Concent Red Cell Distribution Width 13.9 % Platelet Count 192 TH/MM3 Mean Platelet Volume 10.4 FL Neutrophils (%) (Auto) % Lymphocytes (%) (Auto) % Monocytes (%) (Auto) % Eosinophils (%) (Auto) % Basophils (%) (Auto) % Neutrophils # (Auto) TH/MM3 Lymphocytes # (Auto) TH/MM3 Monocytes # (Auto) TH/MM3 Eosinophils # (Auto) TH/MM3 Basophils # (Auto) TH/MM3 CBC Comment AUTO DIFF Differential Total Cells 100 Counted Neutrophils % (Manual) 42 % Band Neutrophils % 21 % Lymphocytes % 12 % Monocytes % 24 % Eosinophils % 1 % Neutrophils # (Manual) 2.0 TH/MM3 Nucleated Red Blood Cells 7 /100 WBC Differential Comment FINAL DIFF MANUAL Platelet Estimate NORMAL Platelet Morphology Comment ENLARGED Ovalocytes 1+ Sodium Level 135 MEQ/L Potassium Level 5.8 MEQ/L Chloride Level 102 MEQ/L Carbon Dioxide Level 22.8 MEQ/L Anion Gap 10 MEQ/L Blood Urea Nitrogen 36 MG/DL Creatinine 1.75 MG/DL Estimat Glomerular Filtration 39 ML/MIN Rate Random Glucose 114 MG/DL Calcium Level 8.9 MG/DL Imaging Studies Last 24 hours Impressions Chest X-Ray 10/15/16 0600 Signed Impressions: Service Date/Time: September 07:54 - CONCLUSION: 1. Cardiomegaly and findings of congestive heart failure. There has been no significant change when compared to the prior exam. 2. Moderate bilateral effusions Jovany Paniagua MD Administered Medications Medications (Trade) Dose Ordered Sig/Lucita Route PRN Reason Start Time Stop Time Status Last Admin Dose Admin Sodium Chloride (NS Flush) 2 ml UNSCH PRN IVF FLUSH AFTER USING IV ACCESS 10/10/16 23:15 10/12/16 08:23 Oxycodone/ Acetaminophen (Percocet 5-325 Mg) 1 tab Q4H PRN PO PAIN SCALE 1 TO 5 10/10/16 23:15 10/15/16 09:21 Temazepam (Restoril) 15 mg HS PRN PO INSOMNIA 10/10/16 23:15 10/15/16 00:48 Pantoprazole Sodium (Protonix Inj) 40 mg Q24H IV PUSH 10/11/16 13:00 10/15/16 14:18 Potassium Chloride 20 meq 20 meq DAILY PO 10/12/16 09:00 10/15/16 09:12 Sodium Chloride (NS 1000 ml Inj) 1,000 ml @ 42 mls/hr [id number] IV 10/13/16 11:45 10/14/16 11:35 Filgrastim (Neupogen Inj) 300 mcg DAILY@14 SQ 10/13/16 14:00 10/15/16 14:20 Multi-Ingredient Mouthwash/Gargle (Magic Mouthwash Adult Liq) 5 ml QID SWISH-SWAL 10/13/16 21:00 10/15/16 14:18 Objective Remarks GENERAL: Well-nourished, well-developed patient. Weak. SKIN: Warm and dry. HEAD: Normocephalic. EYES: No scleral icterus. No injection or drainage. NECK: Supple, trachea midline. No JVD or lymphadenopathy. LYMPHATIC: No adenopathy. CARDIOVASCULAR: Regular rate and rhythm without murmurs. RESPIRATORY: Breath sounds bibasilar crackles. GASTROINTESTINAL: Abdomen soft, non-tender, nondistended. EXTREMITIES: No cyanosis, trace BLE edema. MUSCULOSKELETAL: Adequate muscle tone. NEUROLOGICAL: No obvious focal deficit. Awake, alert, and oriented x3. PSYCHIATRIC: Appropriate mood and affect; insight and judgment normal. Assessment/Plan Assessment 1. 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 He was treated with radiation with weekly carboplatin and Taxol at the end of 2014. He had good response. However, he was later found to have metastatic disease in the mediastinal lymph node and right inferior pubic ramus. He was treated with FOLFOX chemotherapy but did not tolerate it very well, and had to dose reduce the chemotherapy. He then received radiation to the mass in the right adductor muscle eroding through adjacent inferior pubic ramus. He was quite weak after the treatment and not able to receive any chemotherapy. His last PET scan showed hypermetabolic mass in the right pelvis , distal esophagus and subcarinal lymph node consistent with progression of disease. He was started on Cyramza and Taxol a few weeks ago. The chemotherapy dose was again reduced, however, he still could not tolerate it very well. He developed pancytopenia. He also had increased weakness. His overall prognosis is poor. 2. Pancytopenia due to recent chemotherapy. His hemoglobin is stable, platelet count is trending up. He still has neutropenia without neutropenic fever. Neupogen was started 10/13/16. --10/15/16 WBC trended up to 3.2 and neutropenia has resolved. 3. History of recurrent pleural effusion. He had multiple thoracentesis and cytology were all negative. Recent PET scan did not show significant uptake in the thorax. He has now presented with worsening pleural effusion again. He had a thoracentesis and removal of two liters of fluid from the right lung . His breathing is a little better. --10/15/16 CXR showed CHF and stable bilateral pleural effusion. 4. Generalized weakness due to his cancer and recent chemotherapy treatment. 5. 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 He is not taking the immunosuppressive drugs anymore. 6. Alcohol abuse. He started drinking again. 7. Hypertension, stable. 8. Acute renal failure. Plan Plan 1. Continue Neupogen for 1 more day. 2. Monitor CBC 3. Continue supportive care. 4. Can be d/c from oncology standpoint when stable. Piyush Pruitt MD Oct 15, 2016 17:45
[2016-10-15] MEDS: SODIUM CHLOR 0.9% 1000 ML INJ 1,000 ML IV SCH (18:25)
--- NOTE | 2016-10-15 18:48 | HHI.PR ---
Subjective Remarks He is alert and seems confused today. Off O2 sat 96. No cough . IV is out. Objective Vital Signs Date Time Temp Pulse Resp B/P Pulse Ox O2 Delivery O2 Flow Rate FiO2 10/15/16 18:11 98 Nasal Cannula 2.00 10/15/16 16:00 97.6 97 20 105/51 100 10/15/16 12:00 97.2 113 20 139/61 98 10/15/16 08:00 97.9 108 20 132/61 98 10/15/16 04:00 97.8 100 20 118/79 10/15/16 00:56 99 Nasal Cannula 3.00 10/15/16 00:01 97.4 97 20 107/59 98 10/14/16 20:07 94 10/14/16 19:00 97.7 98 22 112/51 98 I/O 10/14/16 10/14/16 10/14/16 10/15/16 10/15/16 10/15/16 07:00 15:00 23:00 07:00 15:00 23:00 Intake Total 0 ml 360 ml 2633 ml 560 ml 0 ml Output Total 225 ml 250 ml 300 ml 200 ml Balance -225 ml 110 ml 2333 ml 360 ml 0 ml Intake Oral 0 ml 360 ml 240 ml 240 ml 0 ml IV Total 2393 ml 320 ml Output Urine Total 225 ml 250 ml 300 ml 200 ml # Voids 3 # Bowel Movements 2 0 1 Result Diagram: 10/15/16 0550 10/15/16 0550 Objective Remarks GENERAL: This averagely built, elderly white male who is alert. HEENT: Head normocephalic. Pupils are reactive. Sclerae are clear Tongue is moist. Throat clear. NECK: Supple. No venous distension. No thyromegaly or lymphadenopathy. CHEST: Decreased breath sounds at the bases and occ crackles at both lung bases. Occasional wheezes are heard. CARDIOVASCULAR: Heart sounds are regular S1-S2. No murmur. No S3. ABDOMEN: Protuberant, soft with liver just felt below the costal margin. The bowel sounds are active. EXTREMITIES: Mild edema with diminished peripheral pulses. Reflexes are 1+ with no gross motor deficits. SKIN: No lesions observed. Assessment and Plan Assessment and Plan IMPRESSION 1. Recurrent large right pleural effusion. 2. Small left pleural effusion and atelectasis. 3. 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 4. History of liver transplant. 5. History of cirrhosis of the liver. 6. Hypertension. Plan : 1. Wean O2 to keep sat >92. 2. Continue nebs qid , duoneb 3. Cont diuretics. 4. IS at bedside qid 5. CBC,BMP in am 6. Chest X ray in am Abhi Villalba MD Oct 15, 2016 18:48
--- NOTE | 2016-10-15 21:18 | RADRPT ---
EXAM DATE/TIME: 10/15/2016 18:57 [facility] COMPARISON: No previous studies available for comparison. EXTERNAL COMPARISON : [facility], PET/CT - TUMOR METABOLISM, September 14, 2016, CT THORAX, W CONTRAST, June 09, 2016. INDICATIONS : Right pleural effusion. MEDICAL HISTORY : Hypertension. Hernia, hiatal. Carcinoma, esophageal. Heart murmur. Sputum production. Pleural effusio n. Dyspnea. Cirrhosis. Eczema. Warts. SURGICAL HISTORY : Tonsillectomy. Appendectomy. Adenoidectomy. Thoracentesis. Hiatal hernia repair with mesh. Liver t ransplant. Port to right chest wall. ENCOUNTER: Subsequent ACUITY: 1 day PAIN SCORE: 5/10 LOCATION: Right chest MEASUREMENTS: SKIN TO PARIETAL PLEURA: 1.7 cm SKIN TO MAX SAFE DEPTH: 5.7 cm ESTIMATED FLUID VOLUME: 1581 cc FLUID COMPOSITION: simple FINDINGS: Pleural effusion as above. A elana was placed on the skin surface superficial to the pleural fluid col lection. CONCLUSION: Right pleural effusion confirmed sonographically and marked for subsequent thoracente sis. Bhupinder Mcwilliams MD on October 15, 2016 at 21:16 Board Certified Radiologist. This report was verified electronically.
--- NOTE | 2016-10-15 21:19 | RADRPT ---
EXAM DATE/TIME: 10/15/2016 19:00 [facility] COMPARISON: No previous studies available for comparison. EXTERNAL COMPARISON : [facility], PET/CT - TUMOR METABOLISM, September 14, 2016, CT THORAX, W CONTRAST, June 09, 2016. INDICATIONS : Left pleural effusion. MEDICAL HISTORY : Hypertension. Hernia, hiatal. Carcinoma, esophageal. Heart murmur. Sputum production. Pleural effusio n. Dyspnea. Cirrhosis. Eczema. Warts. SURGICAL HISTORY : Tonsillectomy. Appendectomy. Adenoidectomy. Thoracentesis. Hiatal hernia repair with mesh. Liver t ransplant. Port to right chest wall. ENCOUNTER: Subsequent ACUITY: 1 day PAIN SCORE: 5/10 LOCATION: Left chest. MEASUREMENTS: SKIN TO PARIETAL PLEURA: 2.0 cm SKIN TO MAX SAFE DEPTH: 4.1 cm ESTIMATED FLUID VOLUME: 863 cc FLUID COMPOSITION: simple FINDINGS: Pleural effusion as above. A elana was placed on the skin surface superficial to the pleural fluid col lection. CONCLUSION: Left pleural effusion confirmed sonographically and marked for subsequent thoracentes is. Bhupinder Mcwilliams MD on October 15, 2016 at 21:17 Board Certified Radiologist. This report was verified electronically.
[2016-10-16] VITALS (7 sets, daily range): BP systolic 100–140; BP diastolic 50–58; PULSE 97–105; RESP 20; TEMP 97.3–98.2; O2SAT 95–98
[2016-10-16] MEDS: CHLORHEXIDINE GLUCONATE 2 % 1 PACK (2 CLOTHS) TOP SCH (03:00)
[2016-10-16] MEDS: RESP: ALBUTEROL 2.5 MG/IPRATROPIUM 0.5 MG NEB (PRN) INH (05:44)
[2016-10-16 05:59] LABS: HEMATOCRIT 24.8 % (39.0-51.0); MEAN CELL VOLUME 96.1 FL (80.0-100.0); MEAN CORPUSCULAR HEMOGLOBIN 33.2 PG (27.0-34.0); MEAN CORPUSCULAR HGB CONC 34.6 % (32.0-36.0); PLATELET COUNT 194 TH/MM3 (150-450); RED BLOOD COUNT 2.58 MIL/MM3 (4.50-5.90); RED CELL DISTRIBUTION WIDTH 13.7 % (11.6-17.2); WHITE BLOOD COUNT 7.5 TH/MM3 (4.0-11.0)
[2016-10-16 06:03] LABS: HEMO FLAGS AUTO DIFF
[2016-10-16 06:04] LABS: BICARBONATE 23.4 MEQ/L (21.0-32.0); POTASSIUM 4.5 MEQ/L (3.5-5.1)
[2016-10-16] MEDS ORDERED: FUROSEMIDE 40 MG/4 ML VIAL IV PUSH ONE (06:15)
--- NOTE | 2016-10-16 06:20 | HHI.PR ---
Subjective Remarks Patient is OOB in chair. Reports feeling SOB. 2-3+ edema in lower extremity Objective Vital Signs Date Time Temp Pulse Resp B/P Pulse Ox O2 Delivery O2 Flow Rate FiO2 10/16/16 05:45 97 Nasal Cannula 3.00 10/16/16 00:00 98.1 98 20 100/50 95 10/15/16 20:00 97.1 98 20 92/50 100 10/15/16 18:11 98 Nasal Cannula 2.00 10/15/16 16:00 97.6 97 20 105/51 100 10/15/16 12:00 97.2 113 20 139/61 98 10/15/16 08:00 97.9 108 20 132/61 98 I/O 10/15/16 10/15/16 10/15/16 10/16/16 10/16/16 10/16/16 07:00 15:00 23:00 07:00 15:00 23:00 Intake Total 560 ml 0 ml 320 ml Output Total 200 ml 50 ml Balance 360 ml 0 ml 270 ml Intake Oral 240 ml 0 ml 0 ml IV Total 320 ml 320 ml Output Urine Total 200 ml 50 ml # Voids 3 # Bowel Movements 1 Result Diagram: 10/16/16 0530 10/16/16 0530 Imaging Last 48 hours Impressions Chest X-Ray 10/15/16 0600 Signed Impressions: Service Date/Time: September 07:54 - CONCLUSION: 1. Cardiomegaly and findings of congestive heart failure. There has been no significant change when compared to the prior exam. 2. Moderate bilateral effusions Jovany Paniagua MD Chest Ultrasound 10/15/16 0000 Signed Impressions: Service Date/Time: September 19:00 - CONCLUSION: Left pleural effusion confirmed sonographically and marked for subsequent thoracentesis. Bhupinder Mcwilliams MD Chest Ultrasound 10/15/16 0000 Signed Impressions: Service Date/Time: September 18:57 - CONCLUSION: Right pleural effusion confirmed sonographically and marked for subsequent thoracentesis. Bhupinder Mcwilliams MD Objective Remarks GENERAL: Alert and cooperative SKIN: Warm and dry. HEAD: Normocephalic. EYES: No scleral icterus. No injection or drainage. NECK: Supple, trachea midline. No JVD or lymphadenopathy. CARDIOVASCULAR: Regular rate and rhythm. Murmur present. RESPIRATORY: Breath sounds with rhonchi. No accessory muscle use. O 2 liters GASTROINTESTINAL: Abdomen soft, non-tender, nondistended. MUSCULOSKELETAL: No cyanosis, or edema. BACK: Nontender without obvious deformity. No CVA tenderness. Medications and IVs Current Medications Medications (Trade) Dose Ordered Sig/Lucita Route Start Time Stop Time Status Last Admin (NS Flush) 2 ml UNSCH PRN IVF 10/10/16 23:15 10/12/16 08:23 (Tylenol) 650 mg Q6H PRN PO 10/10/16 23:15 (Percocet 5-325 Mg) 1 tab Q4H PRN PO 10/10/16 23:15 10/15/16 09:21 (Zofran Inj) 4 mg Q6H PRN IV 10/10/16 23:15 (Milk Of Magnesia Liq) 30 ml Q12H PRN PO 10/10/16 23:15 (Restoril) 15 mg HS PRN PO 10/10/16 23:15 10/15/16 00:48 Miscellaneous Information 1 [id number] XX 10/10/16 23:15 (Chlorhexidine 2% Cloth) Taper DAILY@04 TOP 10/11/16 04:00 10/07/17 03:59 (Chlorhexidine 2% Cloth) 3 pack UNSCH PRN TOP 10/10/16 23:15 (Protonix Inj) 40 mg Q24H IV PUSH 10/11/16 13:00 10/15/16 14:18 (KCl) 20 meq DAILY PO 10/12/16 09:00 10/15/16 09:12 (Neupogen Inj) 300 mcg DAILY@14 SQ 10/13/16 14:00 10/15/16 14:20 (Magic Mouthwash Adult Liq) 5 ml QID SWISH-SWAL 10/13/16 21:00 10/15/16 20:40 (Lasix Inj) 40 mg ONCE ONCE IV PUSH 10/16/16 06:15 10/16/16 06:16 UNV (Lasix) 20 mg BID@09,18 PO 10/17/16 09:00 UNV Assessment and Plan Problem List: (1) Pleural effusion, right Status: Resolved Plan: Bilateral pleural effusion per US. Right greater than left. (2) Neutropenia Status: Acute Plan: WBC 7.5. Oncologist to consulted one more dose of Neupogen (3) Anemia Status: Acute Plan: Stable HGB down to 8.6 yesterday. (4) Back pain Status: Chronic Plan: Pain medication PRN (5) Wound of buttock Status: Acute Plan: Patient presents with areas of moisture related skin loss. Partial thickness. Recommend to keep patient clean and dry. Incontinent of urine. Barrier cream. Patient applied (6) TRINI (acute kidney injury) Status: Acute Plan: Improving. Nephrology consulted and managing. Kidney US done (7) Dysphagia Status: Chronic Plan: Patient with esophageal cancer. Some dysphagia noted. Speech consulted to evaluate for possible aspiration (8) Pulmonary infiltrate Status: Resolved Plan: Pulmonary consulted and managing. (9) Edema Status: Acute Plan: Patient with 2-3 + edema in lower extremity with increased SOB. Large pleural effusions. IVF stopped and lasix given Assessment and Plan Assessment and plan discussed with Dr. Mayer Discharge Planning Plan is to be discharge to SNF when stable. Candi Chin Oct 16, 2016 06:20
[2016-10-16 07:55] LABS: BANDS 20 % (0-6); CORRECTED NUCLEATED RBC 14 /100 WBC (0-0); NEUTROPHIL # MANUAL DIFF 6.2 TH/MM3 (1.8-7.7); POLYS (SEG NEUTROPHILS) 62 % (16-70); PROMYELOCYTES 1 % (0-0); WBC DIFF SAMPLE 100
[2016-10-16 07:56] LABS: DOHLE BODIES PRESENT (NONE SEEN); PLATELET ESTIMATE SMEAR NORMAL (NORMAL); PLATELET MORPHOLOGY ENLARGED (NORMAL); SCAN/DIFF FINAL DIFF MANUAL
[2016-10-16] MEDS: NYSTAT/DIPHENHY/LIDO MOUTHWASH (Adult) 120ML SWISH-SWAL SCH ×3 (09:52→18:09)
[2016-10-16] MEDS: POTASSIUM CHLORIDE 20 MEQ CONTROLLED RELEASE TAB PO SCH (09:52)
--- NOTE | 2016-10-16 09:57 | MB ---
cc: ALIYAH KNOX DATE OF CONSULTATION 10/16/2016 REASON FOR CONSULTATION This is a 71 year-old white male known to my practice with a history of esophageal cancer on chemotherapy, liver transplant for alcoholic cirrhosis and hypertension. He has had increased shortness of breath and peripheral edema. He has not had any chest pain. He underwent thoracentesis with partial improvement of his symptoms. He still has lower extremity edema. PAST MEDICAL HISTORY Positive for: 1. Cirrhosis related to alcohol 2. Liver transplant in 2004 3. Hypertension 4. Esophageal cancer on chemotherapy 5. Low back pain 6. Iron deficiency anemia 7. Post-herpetic trigeminal neuralgia 8. Hyperlipidemia 9. History of appendectomy and hernia surgery. MEDICATIONS At home included: 1. Furosemide 2. Tacrolimus 3. Mycophenolate mofetil 4. Gabapentin ALLERGIES None SOCIAL HISTORY The patient does not smoke. He continues to drink alcohol. FAMILY HISTORY Positive for hypertension, negative for heart disease. REVIEW OF SYSTEMS Otherwise negative PHYSICAL EXAM Blood pressure 140/57, pulse 105. HEAD, EYES, EARS, NOSE, AND THROAT: Negative. 2+carotid upstrokes brisk. LUNGS: Decreased breath sounds, clear. HEART: Regular with a 2/6 systolic murmur at the right upper sternal border and 2/6 diastolic murmur at the left lower sternal border. No gallop or rub. ABDOMEN: Soft, no bruits. EXTREMITIES: With 2+ edema, 1+ distal pulses. NEUROLOGIC: Grossly nonfocal. EKG was reviewed and showed known sinus tachycardia, left axis inferior and anteroseptal Q-waves. LABS Hemoglobin 8.6, potassium 4.5, creatinine 1.63, troponin 0.08. DIAGNOSIS 1. Dyspnea 2. Edema 3. Pleural effusion 4. Esophageal cancer on chemotherapy 5. Status post liver transplant 6. Hypertension 7. Dyslipidemia 8. Pulmonary hypertension 9. Aortic insufficiency 10. Mitral regurgitation 11. Mitral stenosis 12. Anemia DISPOSITION Mr. Dorsey will be monitored on telemetry. His last echocardiogram showed preserved left ventricular systolic function with an ejection fraction of 55%. There was evidence of moderate to severe aortic insufficiency, very mild aortic stenosis, mild mitral regurgitation, mild mitral stenosis, mild tricuspid regurgitation and moderate pulmonary hypertension. His symptoms have partially improved after thoracentesis. He was diagnosed with acute kidney injury and is followed by nephrology. I recommend to continue diuresis for his lower extremity edema. Closer monitoring of his renal function. I will see him back for follow up in our office as an outpatient after discharge. MD NEELIMA Muhammad/TRAVIS /8:17 AM /9:40 AM MARK
[2016-10-16] MEDS: oxyCODONE/ACETAMINOPHEN 5 MG/325 MG TAB PO PRN (09:58)
--- NOTE | 2016-10-16 11:11 | HHI.NPPN ---
Subjective History of Present Illness 71-year-old male with past medical history of metastatic esophageal cancer, pleural effusion, history of cirrhosis, history of liver transplant, hypertension, was admitted with complaint of worsening shortness of breath. I was called to see the patient because of elevated BUN and creatinine. The patient has been in the hospital since October 11 and the creatinine on admission was 0.9 and it has increased. Additional Remarks Patient is alert, sitting on chair, not eating well, not in distress. Review of Systems General Constitutional: Fatigue, Weight Change Cardiovascular Cardiac: ORTEGA Objective Data Data 10/15/16 10/16/16 19:00 07:00 Intake Total 0 ml 650 ml Output Total 50 ml Balance 0 ml 600 ml Intake Oral 0 ml 0 ml IV Total 650 ml Output Urine Total 50 ml # Voids 3 # Bowel Movements 1 Vital Signs Date Time Temp Pulse Resp B/P Pulse Ox O2 Delivery O2 Flow Rate FiO2 10/16/16 10:06 97 10/16/16 08:00 97.3 98 20 107/53 98 10/16/16 06:43 97.8 105 20 140/57 95 10/16/16 05:45 97 Nasal Cannula 3.00 10/16/16 00:00 98.1 98 20 100/50 95 10/15/16 20:00 97.1 98 20 92/50 100 10/15/16 18:11 98 Nasal Cannula 2.00 10/15/16 16:00 97.6 97 20 105/51 100 10/15/16 12:00 97.2 113 20 139/61 98 -: 10/16/16 0530 10/16/16 0530 Physical Exam General Appearance: No Acute Distress, Anxious, Malnourished Eyes Eye Exam: Pupils Equal Throat Throat Exam: Oral Mucosa [place] & Moist Neck Neck Exam: Neck Supple, Trachea Midline Pulmonary Resp Exam: Breath Sounds Equal, Rhonchi, Decreased Bases Cardiology CV Exam: Regular, Normal Sinus Rhythm Gastrointestinal/Abdomen GI Exam: Soft, Non-Tender, Bowel Sounds Present, Distended Extremeties Extremities Exam: Trace Edema Neurologic Neuro Exam: Alert, Awake, Oriented Psychiatric Psych Exam: Appropriate Responses Assessment/Plan Assessment Summary: TRINI/Acute Renal Failure, Dehydration Problem List: (1) Esophageal cancer (2) Anemia and thrombocytopenia (3) Pleural effusion (4) Neutropenia (5) Pleural effusion, right (6) Wound of buttock (7) TRINI (acute kidney injury) Plan Patient has low urine out put. Check urine Na., osm. and Eosinophils, still not done. Creatinine slightly better. Possibly has ATN. Avoid Nephrotoxins. Urine out put is decreased. Now started on Lasix and also on Kcl. Follow the urine out put. Florecita Guevara MD Oct 16, 2016 11:11
--- NOTE | 2016-10-16 11:25 | PD.ONC.PN ---
Subjective Subjective Remarks Afebrile overnight. Patient states he continues to feel weak and short of breath. Objective Data Date Time Temp Pulse Resp B/P Pulse Ox O2 Delivery O2 Flow Rate FiO2 10/16/16 10:06 97 10/16/16 08:00 97.3 98 20 107/53 98 10/16/16 06:43 97.8 105 20 140/57 95 10/16/16 05:45 97 Nasal Cannula 3.00 10/16/16 00:00 98.1 98 20 100/50 95 10/15/16 20:00 97.1 98 20 92/50 100 10/15/16 18:11 98 Nasal Cannula 2.00 10/15/16 16:00 97.6 97 20 105/51 100 10/15/16 12:00 97.2 113 20 139/61 98 10/16/16 10/16/16 10/16/16 07:00 15:00 23:00 Intake Total 330 ml Balance 330 ml Result Diagram: 10/16/1630 10/16/16 0530 Laboratory Results Laboratory Tests Test 10/15/16 10/16/16 22:00 05:30 Potassium Level 4.4 MEQ/L 4.5 MEQ/L White Blood Count 7.5 TH/MM3 Red Blood Count 2.58 MIL/MM3 Hemoglobin 8.6 GM/DL Hematocrit 24.8 % Mean Corpuscular Volume 96.1 FL Mean Corpuscular Hemoglobin 33.2 PG Mean Corpuscular Hemoglobin 34.6 % Concent Red Cell Distribution Width 13.7 % Platelet Count 194 TH/MM3 Mean Platelet Volume 9.8 FL Neutrophils (%) (Auto) % Lymphocytes (%) (Auto) % Monocytes (%) (Auto) % Eosinophils (%) (Auto) % Basophils (%) (Auto) % Neutrophils # (Auto) TH/MM3 Lymphocytes # (Auto) TH/MM3 Monocytes # (Auto) TH/MM3 Eosinophils # (Auto) TH/MM3 Basophils # (Auto) TH/MM3 CBC Comment AUTO DIFF Differential Total Cells 100 Counted Neutrophils % (Manual) 62 % Band Neutrophils % 20 % Lymphocytes % 7 % Monocytes % 10 % Neutrophils # (Manual) 6.2 TH/MM3 Promyelocytes 1 % Nucleated Red Blood Cells 14 /100 WBC Differential Comment FINAL DIFF MANUAL Dohle Bodies PRESENT Platelet Estimate NORMAL Platelet Morphology Comment ENLARGED Sodium Level 140 MEQ/L Chloride Level 106 MEQ/L Carbon Dioxide Level 23.4 MEQ/L Anion Gap 11 MEQ/L Blood Urea Nitrogen 38 MG/DL Creatinine 1.63 MG/DL Estimat Glomerular Filtration 42 ML/MIN Rate Random Glucose 111 MG/DL Calcium Level 8.3 MG/DL Administered Medications Medications (Trade) Dose Ordered Sig/Lucita Route PRN Reason Start Time Stop Time Status Last Admin Dose Admin Sodium Chloride (NS Flush) 2 ml UNSCH PRN IVF FLUSH AFTER USING IV ACCESS 10/10/16 23:15 10/12/16 08:23 Oxycodone/ Acetaminophen (Percocet 5-325 Mg) 1 tab Q4H PRN PO PAIN SCALE 1 TO 5 10/10/16 23:15 10/16/16 09:58 Temazepam (Restoril) 15 mg HS PRN PO INSOMNIA 10/10/16 23:15 10/15/16 00:48 Pantoprazole Sodium (Protonix Inj) 40 mg Q24H IV PUSH 10/11/16 13:00 10/15/16 14:18 Potassium Chloride (KCl) 20 meq DAILY PO 10/12/16 09:00 10/16/16 09:52 Multi-Ingredient Mouthwash/Gargle (Magic Mouthwash Adult Liq) 5 ml QID SWISH-SWAL 10/13/16 21:00 10/16/16 09:52 Objective Remarks GENERAL: Elderly male, sitting up in chair next to bed in [facility]. SKIN: Warm and dry. HEAD: Normocephalic. EYES: No injection or drainage. NECK: Supple, trachea midline. CARDIOVASCULAR: +S1/S2 RESPIRATORY: diminished at bases, scattered ronchi. on supplemental O2. GASTROINTESTINAL: Abdomen soft, non-tender, nondistended. EXTREMITIES: No cyanosis. 2+ pitting edema, bilateral lower extremities. NEUROLOGICAL: No obvious focal deficit. Awake, alert, and oriented x3. 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 --was treated with radiation with weekly carboplatin and Taxol at the end of 2014. good response then developed metastatic disease in the mediastinal lymph node and right inferior pubic ramus.-->treated with FOLFOX chemotherapy--> radiation to mass right adductor muscle eroding through adjacent inferior pubic ramus-->was quite weak after the treatment and not able to receive any chemotherapy. --last PET scan showed hypermetabolic mass in the right pelvis, distal esophagus and subcarinal lymph node consistent with progression of disease--> started on Cyramza and Taxol a few weeks ago. chemotherapy dose was again reduced, however, he still could not tolerate it very well. He developed pancytopenia + increased weakness. His overall prognosis is poor. (2) Pleural effusion, right Status: Resolved Plan: --recurrent pleural effusion. --multiple thoracentesis and cytology were all negative. --Recent PET scan did not show significant uptake in the thorax. --had a thoracentesis and removal of two liters of fluid from the right lung . --10/15/16 CXR showed CHF and stable bilateral pleural effusion. (3) Pancytopenia due to antineoplastic chemotherapy Status: Resolved Assessment 71y/o with esophageal cancer, admitted with pancytopenia, pleural effusion. 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 not taking the immunosuppressive drugs anymore. --Alcohol abuse. He started drinking again. --Hypertension, stable. --Acute renal failure. Plan 1. stop Neupogen 2. consult palliative care to assist with goals of care. prognosis is poor and patient would be hospice appropriate. 3. clear for discharge from oncology standpoint once otherwise stable. Attending Statement The exam, history, and the medical decision-making described in the above note were completed with the assistance of the mid-level provider. I reviewed and agree with the findings presented. I attest that I had a [id number] encounter with the patient on the same day, and personally performed and documented my assessment and findings in the medical record. +SOB with minimal exertion. Hip pain stable. He is tired of treatment. He understand that the cancer is not curable and prognosis is poor. He has decided to go on hospice. Hospice was consulted and await transfer to [facility]. Bonny Deleon Oct 16, 2016 11:25 Piyush Pruitt MD Oct 16, 2016 18:45
[2016-10-16 13:09] LABS: BLOOD, URINE NEG (NEG); COMMENT (UR) CULT NOT INDICATED; CULTURE IF INDICATED CULT NOT INDICATED; GLUCOSE,URINE NEG (NEG); HYALINE CAST, URINE 22 /lpf (RARE); KETONE, URINE NEG (NEG); MUCUS URINE FEW /lpf (OCC); NITRITE,URINE NEG (NEG); URIC ACID CRYSTALS, URINE RARE /hpf; URINE COLOR YELLOW (YELLW/STRAW)
--- NOTE | 2016-10-16 13:13 | PD.PN.STU ---
Subjective Remarks patient SOB, on [place] O2. Sitting up in chair watching tv. Objective Vitals Vital Signs Date Time Temp Pulse Resp B/P Pulse Ox O2 Delivery O2 Flow Rate FiO2 10/16/16 10:06 97 10/16/16 08:00 97.3 98 20 107/53 98 10/16/16 06:43 97.8 105 20 140/57 95 10/16/16 05:45 97 Nasal Cannula 3.00 10/16/16 00:00 98.1 98 20 100/50 95 10/15/16 20:00 97.1 98 20 92/50 100 10/15/16 18:11 98 Nasal Cannula 2.00 10/15/16 16:00 97.6 97 20 105/51 100 I/O 10/15/16 10/15/16 10/15/16 10/16/16 10/16/16 10/16/16 07:00 15:00 23:00 07:00 15:00 23:00 Intake Total 680 ml 0 ml 320 ml 330 ml Output Total 200 ml 50 ml Balance 480 ml 0 ml 270 ml 330 ml Intake Oral 360 ml 0 ml 0 ml IV Total 320 ml 320 ml 330 ml Output Urine Total 200 ml 50 ml # Voids 1 3 # Bowel Movements 1 1 Result Diagram: 10/16/16 0530 10/16/16 0530 Objective Remarks GENERAL: This averagely built, elderly white male who is alert. HEENT: Head normocephalic. Pupils are reactive. Sclerae are clear Tongue is moist. Throat clear. NECK: Supple. No venous distension. No thyromegaly or lymphadenopathy. CHEST: Decreased breath sounds at the bases, worse on right side. Occ crackles and wheezes heard through out. CARDIOVASCULAR: Heart sounds are regular S1-S2. No murmur. No S3. ABDOMEN: Protuberant, soft with liver just felt below the costal margin. The bowel sounds are active. EXTREMITIES: 2+ edema bilaterally. Reflexes are 1+ with no gross motor deficits. SKIN: No lesions observed. A/P Assessment and Plan IMPRESSION 1. Recurrent large right pleural effusion. 2. Small left pleural effusion and atelectasis. 3. 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 4. History of liver transplant. 5. History of cirrhosis of the liver. 6. Hypertension. Plan : 1. Wean O2 to keep sat >92. 2. Continue nebs qid , duoneb 3. Cont diuretics. 4. IS at bedside qid 5. Hold anticoagulants 6. Possible pleural X catheter Mary Mortensen M3 Oct 16, 2016 13:13
--- NOTE | 2016-10-16 13:54 | PD.CONS ---
Consult Service Palliative Care Consult Requested By Joanne Salazar Primary Care Physician Rufino Mayer DO . Reason for Consultation a. To assist with evaluation and management of symptoms including: Dyspnea , pain b. To assist medical decision maker(s) with: better understanding of current medical conditions; weighing benefits/burdens of medical treatment options; making medical treatment decisions. . HPI History of Present Illness This 71-year-old male was admitted again because of dyspnea. 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 He underwent radiation and chemotherapy, and the disease in his esophagus appeared to reason all by August 2015 when he had an EGD. However, PET scan at that time revealed apparent disease metastatic to lymph nodes, and the patient then underwent FOLFOX chemotherapy. Later in 2015, the patient developed right groin /hip pain, and was found to have soft tissue and bony metastases. He underwent radiation to the right hip area. Because of the recurrent disease, the patient was begun on more chemotherapy, Taxol and Cyramza, with the most recent dose being 10/06/16. The patient has been getting weaker over the past couple months , and has lost weight. He was having more difficulty getting around at home, and became progressively more dyspneic for several days until he presented to the emergency department on 10/10/16 for this hospitalization. In the emergency department, findings included: * Moderate dyspnea, alert * Temp 97.2, pulse 109, respirations 24, blood pressure 142/63, oxygen saturation 98% on 3 L * White count 3.6, hemoglobin 9.8 * Sodium 136, creatinine 0.95, albumin 2.4 * BNP 2484 * Chest x-ray with bilateral effusions, moderate on the right and small on the left, and basilar airspace disease was noted The patient underwent a thoracentesis on the right side, with removal of 2 L of bloody effusion. That seemed to help his shortness of breath somewhat, but he remained quite weak. Over the subsequent days, the patient's renal function deteriorated, with creatinine 1.87 on 10/13/16. Since then, renal function seems to have stabilized at about that level. On 10/15/16, chest x-ray was consistent with CHF. The pleural effusions have been recurrent, and the patient has undergone numerous thoracenteses. The cytology of the fluid has repeatedly been negative for malignancy. The patient's main pain complaints seem to be the constant pain in his right groin and hip area that has been attributed to bony metastases. It is worse with weightbearing, and nothing in particular seems to make it better. The patient continued to decline while here in the hospital, and he felt weaker , more fatigued, had no appetite, and continued to feel dyspneic even at rest. Palliative Care was consulted to assist with symptom management, and to enter into discussions with the family regarding his current illness, the prognosis, and the benefits and burdens of the various treatment options now. . Function/Cognitive Trajectory The patient lives by himself, and functions independently. However, in recent weeks, his weakness has progressed and it is more difficult for him to get around at home. He was still driving a car prior to this admission. . Review of Systems Constitutional: COMPLAINS OF: Fatigue, Weight loss Endocrine: DENIES: Polyuria Eyes: DENIES: Eye inflammation Ears, nose, mouth, throat: DENIES: Epistaxis Respiratory: COMPLAINS OF: Cough, Shortness of breath Cardiovascular: COMPLAINS OF: Dyspnea on Exertion, DENIES: Chest pain Gastrointestinal: DENIES: Constipation, Diarrhea, Vomiting Genitourinary: DENIES: Hematuria Musculoskeletal: COMPLAINS OF: Joint pain (right hip) Integumentary: DENIES: Rash Hematologic/Lymphatics: DENIES: Bruising Immunologic/Allergic: DENIES: Urticaria Neurologic: DENIES: Paresthesias, Seizures Psychiatric: COMPLAINS OF: Depression, DENIES: Hallucinations, Agitation Past Family Social History Coded Allergies: No Known Allergies (Verified , 10/10/16) Past Medical History * Esophageal squamous cell cancer, advanced stage * Progressive symptoms of malignancy in spite of recent chemotherapy * Profound weakness and fatigue * Acute kidney injury * Pleural effusions, recurrent * Liver cirrhosis, status post liver transplant 2007 * History of alcoholism, and patient has been consuming alcohol again in recent weeks * Hypertension * Anemia * Noncompliance (stopped taking his antirejection drugs 3 months ago) . Past Surgical History * Appendectomy * Liver transplant 2007 * Gastrostomy 02/21/15 * Hiatal hernia surgery * Tonsils many years ago * Chest tube for pleural effusion March 2016 * Thoracenteses, multiple . Reported Medications The patient reports he stopped taking his antirejection medications about 3 months ago. . Current Medications Medications (Trade) Dose Ordered Sig/Lucita Route Start Time Stop Time Status Last Admin (NS Flush) 2 ml UNSCH PRN IVF 10/10/16 23:15 10/12/16 08:23 (Tylenol) 650 mg Q6H PRN PO 10/10/16 23:15 (Percocet 5-325 Mg) 1 tab Q4H PRN PO 10/10/16 23:15 10/16/16 09:58 (Zofran Inj) 4 mg Q6H PRN IV 10/10/16 23:15 (Milk Of Magnesia Liq) 30 ml Q12H PRN PO 10/10/16 23:15 (Restoril) 15 mg HS PRN PO 10/10/16 23:15 10/15/16 00:48 Miscellaneous Information 1 Q361D XX 10/10/16 23:15 (Chlorhexidine 2% Cloth) Taper DAILY@04 TOP 10/11/16 04:00 10/07/17 03:59 (Chlorhexidine 2% Cloth) 3 pack UNSCH PRN TOP 10/10/16 23:15 (Protonix Inj) 40 mg Q24H IV PUSH 10/11/16 13:00 10/15/16 14:18 (KCl) 20 meq DAILY PO 10/12/16 09:00 10/16/16 09:52 (Magic Mouthwash Adult Liq) 5 ml QID SWISH-SWAL 10/13/16 21:00 10/16/16 09:52 (Lasix) 20 mg BID@,18 PO 10/17/16 09:00 Family History The patient's father at age 87 of "old age." His mother at age 99 of heart disease. There is no family history of esophageal cancer. . Substance Use Tobacco: None Alcohol: History of alcoholism, sober for several years, but drinking again ( vodka 3 times per day) the past few weeks. Prescription med abuse: None. Illicits: None. . Psychosocial History The patient was born and raised in [place]. He lived there until he retired 8 years ago and moved to [place]. He lived with his mother here for a few years until she in July 2015, and he has lived alone since then. He was and twice. The patient has 2 sons, both living in [place]. He worked as an inventory accountant and a controller. . Spiritual/Cultural Factors Although the patient has a Bahai background, he has been unaffiliated with any local denomination, jew, or clergy in recent years. He says, however, " I know the Bible." He would like a director blood bank visit while he is here in the hospital. . Living Will: Never completed Health Care Surrogate: Never completed Durable Power of Earth Science Teacher: Never completed Health Care Surrogate(s): Regarding a decision maker for the patient, he reports that he would like to designate his sister Koki has primary decision maker, his son Levy has secondary, and his son Amrit as #3. . Today's verbally stated goals: The patient recognizes that it is time to focus on symptoms and comfort, and he would like to speak with one of the hospice nurses. He realizes he will need help at home, since he lives alone. . Ethical and Legal Issues There are no ethical issues that would impact his care or decision-making at this time. The patient has capacity for decision-making at this time. When he loses that capacity, he tells me he would like to designate his sister Koki has primary healthcare surrogate, son Levy has secondary, and son Amrit as #3. . Physical Exam Vital Signs Date Time Temp Pulse Resp B/P Pulse Ox O2 Delivery O2 Flow Rate FiO2 10/16/16 10:06 97 10/16/16 08:00 97.3 98 20 107/53 98 10/16/16 06:43 97.8 105 20 140/57 95 10/16/16 05:45 97 Nasal Cannula 3.00 10/16/16 00:00 98.1 98 20 100/50 95 10/15/16 20:00 97.1 98 20 92/50 100 10/15/16 18:11 98 Nasal Cannula 2.00 10/15/16 16:00 97.6 97 20 105/51 100 10/15/16 10/16/16 19:00 07:00 Intake Total 0 ml 650 ml Output Total 50 ml Balance 0 ml 600 ml Intake Oral 0 ml 0 ml IV Total 650 ml Output Urine Total 50 ml # Voids 3 # Bowel Movements 1 Exam CONSTITUTIONAL/GENERAL: This is a weak appearing, somewhat dyspneic patient. TUBES/LINES/DRAINS: Peripheral IV SKIN: No jaundice, rashes, or lesions. Ecchymoses on upper extremities. No wounds seen anteriorly. Skin temperature appropriate. Not diaphoretic. HEAD: Atraumatic. Normocephalic. EYES: Pupils equal and round and reactive. Extraocular motions intact. No scleral icterus. No injection or drainage. Fundi not examined. ENT: Hearing grossly normal. Nose without bleeding or purulent drainage. Throat without visible erythema, exudates, masses, or lesions. NECK: Trachea midline. Supple, nontender. No palpable thyroid enlargement or nodularity. CARDIOVASCULAR: Regular rate and rhythm with grade 2 systolic murmur.. RESPIRATORY/CHEST: Symmetric, mildly labored respirations. Markedly diminished sounds, with some scattered rhonchi GASTROINTESTINAL: Abdomen soft, non-tender, nondistended. No hepato-splenomegaly , or palpable masses. No guarding. Bowel sounds present. GENITOURINARY: Without palpable bladder distension. MUSCULOSKELETAL: Extremities without clubbing, but he has 2+ edema in both lower legs/feet. No joint tenderness or effusion noted. No calf tenderness. No mottling or clubbing. LYMPHATICS: No palpable cervical or supraclavicular adenopathy. NEUROLOGICAL: Awake and alert. He appears quite weak. Moves all extremities. PSYCHIATRIC: No obvious anxiety/depression. no apparent hallucinations or other psychotic thought process. . Diagnostic Tests Laboratory Laboratory Tests Test 10/14/16 10/15/16 10/15/16 10/16/16 06:20 05:50 22:00 05:30 White Blood Count 0.7 TH/MM3 3.2 TH/MM3 7.5 TH/MM3 (4.0-11.0) (4.0-11.0) (4.0-11.0) Red Blood Count 2.39 MIL/MM3 2.95 MIL/MM3 2.58 MIL/MM3 (4.50-5.90) (4.50-5.90) (4.50-5.90) Hemoglobin 8.1 GM/DL 9.6 GM/DL 8.6 GM/DL (13.0-17.0) (13.0-17.0) (13.0-17.0) Hematocrit 22.9 % 28.7 % 24.8 % (39.0-51.0) (39.0-51.0) (39.0-51.0) Mean Corpuscular Volume 95.7 FL 97.2 FL 96.1 FL (80.0-100.0) (80.0-100.0) (80.0-100.0) Mean Corpuscular Hemoglobin 33.9 PG 32.5 PG 33.2 PG (27.0-34.0) (27.0-34.0) (27.0-34.0) Mean Corpuscular Hemoglobin 35.4 % 33.4 % 34.6 % Concent (32.0-36.0) (32.0-36.0) (32.0-36.0) Red Cell Distribution Width 13.7 % 13.9 % 13.7 % (11.6-17.2) (11.6-17.2) (11.6-17.2) Platelet Count 144 TH/MM3 192 TH/MM3 194 TH/MM3 (150-450) (150-450) (150-450) Mean Platelet Volume 9.8 FL 10.4 FL 9.8 FL (7.0-11.0) (7.0-11.0) (7.0-11.0) Neutrophils (%) (Auto) 58.7 % % (16.0-70.0) % (16.0-70.0) (16.0-70.0) Lymphocytes (%) (Auto) 13.4 % % (9.0-44.0) % (9.0-44.0) (9.0-44.0) Monocytes (%) (Auto) 19.2 % % (0.0-8.0) % (0.0-8.0) (0.0-8.0) Eosinophils (%) (Auto) 7.8 % (0.0-4.0) % (0.0-4.0) % (0.0-4.0) Basophils (%) (Auto) 0.9 % (0.0-2.0) % (0.0-2.0) % (0.0-2.0) Neutrophils # (Auto) 0.4 TH/MM3 TH/MM3 TH/MM3 (1.8-7.7) (1.8-7.7) (1.8-7.7) Lymphocytes # (Auto) 0.1 TH/MM3 TH/MM3 TH/MM3 (1.0-4.8) (1.0-4.8) (1.0-4.8) Monocytes # (Auto) 0.1 TH/MM3 TH/MM3 (0-0.9) TH/MM3 (0-0.9) (0-0.9) Eosinophils # (Auto) 0.1 TH/MM3 TH/MM3 (0-0.4) TH/MM3 (0-0.4) (0-0.4) Basophils # (Auto) 0.0 TH/MM3 TH/MM3 (0-0.2) TH/MM3 (0-0.2) (0-0.2) CBC Comment AUTO DIFF AUTO DIFF AUTO DIFF Differential Total Cells 100 100 100 Counted Neutrophils % (Manual) 38 % (16-70) 42 % (16-70) 62 % (16-70) Band Neutrophils % 19 % (0-6) 21 % (0-6) 20 % (0-6) Lymphocytes % 17 % (9-44) 12 % (9-44) 7 % (9-44) Monocytes % 14 % (0-8) 24 % (0-8) 10 % (0-8) Eosinophils % 11 % (0-4) 1 % (0-4) Basophils % 1 % (0-2) Neutrophils # (Manual) 0.4 TH/MM3 2.0 TH/MM3 6.2 TH/MM3 (1.8-7.7) (1.8-7.7) (1.8-7.7) Nucleated Red Blood Cells 1 /100 WBC 7 /100 WBC 14 /100 WBC (0-0) (0-0) (0-0) Differential Comment FINAL DIFF FINAL DIFF FINAL DIFF MANUAL MANUAL MANUAL Platelet Estimate LOW (NORMAL) NORMAL NORMAL (NORMAL) (NORMAL) Platelet Morphology Comment NORMAL ENLARGED ENLARGED (NORMAL) (NORMAL) (NORMAL) Ovalocytes 1+ (NORMAL) 1+ (NORMAL) Sodium Level 138 MEQ/L 135 MEQ/L 140 MEQ/L (136-145) (136-145) (136-145) Potassium Level 4.1 MEQ/L 5.8 MEQ/L 4.4 MEQ/L 4.5 MEQ/L (3.5-5.1) (3.5-5.1) (3.5-5.1) (3.5-5.1) Chloride Level 100 MEQ/L 102 MEQ/L 106 MEQ/L (98-107) (98-107) (98-107) Carbon Dioxide Level 29.4 MEQ/L 22.8 MEQ/L 23.4 MEQ/L (21.0-32.0) (21.0-32.0) (21.0-32.0) Anion Gap 9 MEQ/L (5-15) 10 MEQ/L (5-15) 11 MEQ/L (5-15) Blood Urea Nitrogen 36 MG/DL (7-18) 36 MG/DL (7-18) 38 MG/DL (7-18) Creatinine 1.94 MG/DL 1.75 MG/DL 1.63 MG/DL (0.60-1.30) (0.60-1.30) (0.60-1.30) Estimat Glomerular Filtration 34 ML/MIN (>89) 39 ML/MIN (>89) 42 ML/MIN (>89) Rate Random Glucose 113 MG/DL 114 MG/DL 111 MG/DL (74-106) (74-106) (74-106) Calcium Level 8.2 MG/DL 8.9 MG/DL 8.3 MG/DL (8.5-10.1) (8.5-10.1) (8.5-10.1) Promyelocytes 1 % (0-0) Dohle Bodies PRESENT (NONE SEEN) Test 10/16/16 12:28 Urine Color YELLOW (YELLW/STRAW) Urine Turbidity CLEAR (CLEAR) Urine pH 5.0 (5.0-8.5) Urine Specific [place] 1.008 (1.002-1.035) Urine Protein NEG mg/dL (NEG-TRACE) Urine Glucose (UA) NEG mg/dL (NEG) Urine Ketones NEG mg/dL (NEG) Urine Occult Blood NEG (NEG) Urine Nitrite NEG (NEG) Urine Bilirubin NEG (NEG) Urine Urobilinogen LESS THAN 2.0 MG/DL (LESS THAN 2.0) Urine Leukocyte Esterase NEG (NEG) Urine RBC 1 /hpf (0-3) Urine WBC LESS THAN 1 /hpf (0-5) Urine Uric Acid Crystals RARE /hpf (NONE) Urine Hyaline Casts 22 /lpf (RARE) Urine Mucus FEW /lpf (OCC) Microscopic Urinalysis Comment CULT NOT INDICATED Urine Random Sodium 47 MEQ/L Result Diagram: 10/16/16 0530 10/16/16 0530 Imaging Last Impressions Chest X-Ray 10/15/16 0600 Signed Impressions: Service Date/Time: September 07:54 - CONCLUSION: 1. Cardiomegaly and findings of congestive heart failure. There has been no significant change when compared to the prior exam. 2. Moderate bilateral effusions Jovany Paniagua MD Chest Ultrasound 10/15/16 0000 Signed Impressions: Service Date/Time: September 19:00 - CONCLUSION: Left pleural effusion confirmed sonographically and marked for subsequent thoracentesis. Bhupinder Mcwilliams MD Renal Ultrasound 10/14/16 0000 Signed Impressions: Service Date/Time: Friday, October 14, 2016 14:45 - CONCLUSION: 1. No evidence of obstruction 2. Bilateral effusions Jovany Paniagua MD Procedures Thoracentesis 10/10/16 . Patient/Family Conference Present at Family Conference: The patient. Family Conference Time (mins): 39 Family Conference Location: Bedside Issues Discussed: * Palliative care role, purpose, approach * Hospice care role, purpose, approach * Additional medical, psychosocial, and spiritual history * Patients general health, functional status, and cognitive changes in the months leading up to the current hospitalization * Patient/family understanding of the current medical problems * Patient/family understanding of prognosis * Patients goals of care as best understood from advance directives and/or conversations and/or values * Current medical treatment options and benefits/burdens of those options * Likely scenarios comparing ongoing aggressive care with a transition to comfort measures only * Questions answered to the best of my ability * Palliative care contact information provided The patient recognizes that it is time to focus on symptoms and comfort, and he would like to speak with one of the hospice nurses. He realizes he will need help at home, since he lives alone. . Assessment and Plan Disease Oriented Problem List: (1) esophageal cancer, squamous cell, advanced disease (2) progressive symptoms of malignancy in spite of recent chemotherapy (3) profound weakness and fatigue (4) liver cirrhosis from alcoholism, status post transplant 2007 (5) noncompliance (stopped taking antirejection drugs 3 months ago) (6) recent resumption of alcohol consumption (7) anemia (8) hypertension (9) pleural effusions, recurrent Symptom Scale: (1) pain 0-10 Scale: 1 (right hip/groin) (2) dyspnea 0-10 Scale: 3 Pertinent Non-Medical Issues Psychosocial: , lives alone, 2 sons and the patient's sister in [place]. Retired inventory accountant. Spiritual: Unaffiliated advent, does desire director blood bank visit. Legal: The patient has capacity for decision making at this time. He tells me that when he loses that capacity, he would like to designate his sister Koki has primary decision maker, his son Levy has secondary, and his son Amrit as #3. Ethical issues impacting care: None. ,. Important Contacts Patient's sister: Koki [place] [phone] . Prognosis The patient is terminal. He is clearly dying in the upcoming weeks. . Code Status: No Code Plan * DO NOT RESUSCITATE, per patient on 10/16/16 * DECISION-MAKING: The patient has capacity for decision making at this time. He tells me that when he loses that capacity, he would like to designate his sister Koki has primary decision maker, his son Levy has secondary, and his son Amrit as #3. * GOALS: The patient recognizes that it is time to focus on symptoms and comfort , and he would like to speak with one of the hospice nurses. He realizes he will need help at home, since he lives alone. * SYMPTOMS: The patient's pain is relatively mild while he is in his chair or in the bed, and he has received about 1 dose of his PRN Percocet daily the past few days. Her dyspnea was improved somewhat after the thoracentesis, but he continues to have some dyspnea even at rest. Recommendations that could be considered for this include judicious use of opiates and benzodiazepines. * Hospice consult placed. * Palliative Care will continue to follow the patient during this hospitalization. . Time Spent Total Floor Time (mins): 76 Face to Face Time (mins): 40 >50% Counseling/Coord of Care: Yes Thank you for the opportunity to participate in the care of Mr. Dorsey. Attestation To help prompt me to consider important information that might be impacting today's encounter and assessment, information from prior notes written by myself or my colleagues may have been "brought forward" into today's note. My signature on this note, however, is an attestation that I personally performed the exam, history, and/or decision-making noted today, and, unless otherwise indicated, the interactions with patient, family, and staff as well as the review of records all occurred today. I also attest that the listed assessment and stated plan reflect my best clinical judgment today based on the combination of historical information, prior notes, and today's exam/ interactions. When time spent is documented, it refers only to time spent today by the signer, or if indicated, combined time spent today by collaborating physician/nurse practitioner. Alba Mccullough MD Oct 16, 2016 13:54
[2016-10-16] MEDS: PANTOPRAZOLE SODIUM 40 MG VIAL IV PUSH SCH (14:00)
--- NOTE | 2016-10-16 17:54 | HHI.DS ---
Discharge Summary Admission Date Oct 10, 2016 at 23:07 Admitting Diagnosis Pleural Effusion, Dyspnea Brief History Patient is a 71-year-old male that presents to the ED for evaluation of shortness of breath. Patient has a chronic history of esophageal cancer and hip cancer currently undergoing chemotherapy last dose on Wednesday. Per patient he has a history of pleural effusion secondary to the cancer and he has had thoracocentesis in the past. Per patient this feels similar to his previous. Per patient he has not had one in a while. Patient denies taking any blood thinners. He denies any cough or runny nose. Per patient he has shortness of breath with exertion as well as with movement. Also with sitting. Denies any chest pain. Denies any fevers chills or sweats. No sick contacts. No allergies to medication. No bowel movement or urinary issues. He does have some problems with dysphagia but that's chronic from his cancer. Patient also has a history of liver transplant followed by Dr. Ann for ETOH use. He continues to drink. CBC/BMP: 10/16/16 0530 10/16/16 0530 Significant Findings Laboratory Tests Test 10/14/16 10/15/16 10/16/16 10/16/16 06:20 05:50 05:30 12:28 White Blood Count 0.7 TH/MM3 3.2 TH/MM3 (4.0-11.0) (4.0-11.0) Red Blood Count 2.39 MIL/MM3 2.95 MIL/MM3 2.58 MIL/MM3 (4.50-5.90) (4.50-5.90) (4.50-5.90) Hemoglobin 8.1 GM/DL 9.6 GM/DL 8.6 GM/DL (13.0-17.0) (13.0-17.0) (13.0-17.0) Hematocrit 22.9 % 28.7 % 24.8 % (39.0-51.0) (39.0-51.0) (39.0-51.0) Platelet Count 144 TH/MM3 (150-450) Monocytes (%) (Auto) 19.2 % (0.0-8.0) Eosinophils (%) (Auto) 7.8 % (0.0-4.0) Neutrophils # (Auto) 0.4 TH/MM3 (1.8-7.7) Lymphocytes # (Auto) 0.1 TH/MM3 (1.0-4.8) Band Neutrophils % 19 % (0-6) 21 % (0-6) 20 % (0-6) Monocytes % 14 % (0-8) 24 % (0-8) 10 % (0-8) Eosinophils % 11 % (0-4) Neutrophils # (Manual) 0.4 TH/MM3 (1.8-7.7) Nucleated Red Blood Cells 1 /100 WBC 7 /100 WBC 14 /100 WBC (0-0) (0-0) (0-0) Platelet Estimate LOW (NORMAL) Ovalocytes 1+ (NORMAL) 1+ (NORMAL) Blood Urea Nitrogen 36 MG/DL (7-18) 36 MG/DL (7-18) 38 MG/DL (7-18) Creatinine 1.94 MG/DL 1.75 MG/DL 1.63 MG/DL (0.60-1.30) (0.60-1.30) (0.60-1.30) Estimat Glomerular Filtration 34 ML/MIN (>89) 39 ML/MIN (>89) 42 ML/MIN (>89) Rate Random Glucose 113 MG/DL 114 MG/DL 111 MG/DL (74-106) (74-106) (74-106) Calcium Level 8.2 MG/DL 8.3 MG/DL (8.5-10.1) (8.5-10.1) Platelet Morphology Comment ENLARGED ENLARGED (NORMAL) (NORMAL) Sodium Level 135 MEQ/L (136-145) Potassium Level 5.8 MEQ/L (3.5-5.1) Lymphocytes % 7 % (9-44) Promyelocytes 1 % (0-0) Dohle Bodies PRESENT (NONE SEEN) Urine Uric Acid Crystals RARE /hpf (NONE) Urine Mucus FEW /lpf (OCC) PE at Discharge GENERAL: Alert and cooperative SKIN: Warm and dry. HEAD: Normocephalic. EYES: No scleral icterus. No injection or drainage. NECK: Supple, trachea midline. No JVD or lymphadenopathy. CARDIOVASCULAR: Regular rate and rhythm. Murmur present. RESPIRATORY: Breath sounds with rhonchi. No accessory muscle use. O 2 liters GASTROINTESTINAL: Abdomen soft, non-tender, nondistended. MUSCULOSKELETAL: No cyanosis, or edema. BACK: Nontender without obvious deformity. No CVA tenderness. Hospital Course Patient is a 71-year-old male that presents to the ED for evaluation of shortness of breath. Patient has a chronic history of esophageal cancer and hip cancer currently undergoing chemotherapy last dose on Wednesday. Per patient he has a history of pleural effusion secondary to the cancer and he has had thoracocentesis in the past. Per patient this feels similar to his previous. Per patient he has not had one in a while. Patient denies taking any blood thinners. He denies any cough or runny nose. Per patient he has shortness of breath with exertion as well as with movement. Also with sitting. Denies any chest pain. Denies any fevers chills or sweats. No sick contacts. No allergies to medication. No bowel movement or urinary issues. He does have some problems with dysphagia but that's chronic from his cancer. Patient also has a history of liver transplant followed by Dr. Ann for ETOH use. He continues to drink. Patient was followed by pulmonary, nephrology, and oncology during his stay. His hospital coarse was complicated by recurrent pleural effusions, CHF, and renal failure. Patient has metastatic cancer and has not been tolerating his chemotherapy. During his hospital stay he was pancytopenic and was given Neupogen. He had a thoracentesis on admission and now has bilateral pleural effusions again. Patient is discharged to hospice care facility for comfort care. Pt Condition on Discharge: Deteriorating Discharge Disposition: Hospice/Med Facility Discharge Instructions DIET: Follow Instructions for: As Tolerated, No Restrictions Speech Therapy-Diet Recommenda: Regular Activities you can perform: Regular-No Restrictions Continued Medications: Furosemide (Lasix) 20 Mg Tab 20 MG PO BID #60 Ref 0 TAB Candi Chin Oct 16, 2016 17:54
[2016-10-16] MEDS ORDERED: LORazepam 1 MG TAB PO PRN (18:00)
--- NOTE | 2016-10-16 19:45 | HHI.PR ---
Subjective Remarks He is alert and seems dyspneic today. On O2, 2 L sat 95. Wheezing. Met with hospice Objective Vital Signs Date Time Temp Pulse Resp B/P Pulse Ox O2 Delivery O2 Flow Rate FiO2 10/16/16 16:00 98.2 105 20 110/52 95 10/16/16 12:00 97.5 99 20 114/58 97 10/16/16 10:06 97 10/16/16 08:00 97.3 98 20 107/53 98 10/16/16 06:43 97.8 105 20 140/57 95 10/16/16 05:45 97 Nasal Cannula 3.00 10/16/16 00:00 98.1 98 20 100/50 95 10/15/16 20:00 97.1 98 20 92/50 100 I/O 10/15/16 10/15/16 10/15/16 10/16/16 10/16/16 10/16/16 07:00 15:00 23:00 07:00 15:00 23:00 Intake Total 680 ml 0 ml 320 ml 330 ml 240 ml Output Total 200 ml 50 ml 125 ml Balance 480 ml 0 ml 270 ml 330 ml 115 ml Intake Oral 360 ml 0 ml 0 ml 240 ml IV Total 320 ml 320 ml 330 ml Output Urine Total 200 ml 50 ml 125 ml # Voids 1 3 # Bowel Movements 1 1 1 Result Diagram: 10/16/16 0530 10/16/16 0530 Objective Remarks GENERAL: This averagely built, elderly white male who is alert. HEENT: Head normocephalic. Pupils are reactive. Sclerae are clear Tongue is moist. Throat clear. NECK: Supple. Mild venous distension. No thyromegaly or lymphadenopathy. CHEST: Decreased breath sounds at the bases and occ crackles at both lung bases. Occasional wheezes are heard. CARDIOVASCULAR: Heart sounds are regular S1-S2. No murmur. No S3. ABDOMEN: Protuberant, soft with liver just felt below the costal margin. The bowel sounds are active. EXTREMITIES: Mild edema with diminished peripheral pulses. Reflexes are 1+ with no gross motor deficits. SKIN: No lesions observed. Assessment and Plan Assessment and Plan IMPRESSION 1. Recurrent large right pleural effusion. 2. Small left pleural effusion and atelectasis. 3. 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 4. History of liver transplant. 5. History of cirrhosis of the liver. 6. Hypertension. Plan : 1. Wean O2 to keep sat >92. 2. Continue nebs qid , duoneb 3. Cont diuretics. 4. IS at bedside qid 5. Thoracentesis if patient agrees 6. Coag Profile. Abhi Villalba MD Oct 16, 2016 19:45
[2016-10-17] MEDS ORDERED: FUROSEMIDE 20 MG TAB PO SCH (09:00)
== END 2016-10-16 20:55 | disposition hospice, inpatient (51) | DRG 186 ==
LOC: NEPE 21:27 → NEDA 23:07 → N04A 10-11 17:49
PROVIDERS: ADMIT Family Medicine; ATTEND Family Medicine
PROC: 0W993ZZ Drainage of Right Pleural Cavity, Percutaneous Approach (ICD-10-PCS; principal; 2016-10-11)
DX: J90 Pleural effusion, not elsewhere classified (principal); D61.810 Antineoplastic chemotherapy induced pancytopenia; I50.9 Heart failure, unspecified; N17.9 Acute kidney failure, unspecified; E46 Unspecified protein-calorie malnutrition; C15.9 Malignant neoplasm of esophagus, unspecified; Z94.4 Liver transplant status; C77.1 Secondary and unspecified malignant neoplasm of intrathoracic lymph nodes; C79.51 Secondary malignant neoplasm of bone; J98.11 Atelectasis; R13.10 Dysphagia, unspecified; R53.1 Weakness; F10.10 Alcohol abuse, uncomplicated; E86.0 Dehydration; I08.3 Combined rheumatic disorders of mitral, aortic and tricuspid valves; I27.2 Other secondary pulmonary hypertension; I10 Essential (primary) hypertension; G89.29 Other chronic pain; Z51.5 Encounter for palliative care; T45.1X5A Adverse effect of antineoplastic and immunosuppressive drugs, initial encounter; R60.0 Localized edema; R32 Unspecified urinary incontinence; Z66 Do not resuscitate; L98.419 Non-pressure chronic ulcer of buttock with unspecified severity; R09.02 Hypoxemia; Z91.14 Patient's other noncompliance with medication regimen; Z68.22 Body mass index [BMI] 22.0-22.9, adult; Z92.3 Personal history of irradiation
CPT/HCPCS: 36600; 71010; 71020; 76604; 76775; 80048; 80053; 81001; 82140; 82550; 82805; 83735; 83880; 84100; 84132; 84134; 84300; 84484; 85007; 85025; 85027; 85610; 85730; 93005; 94640; 94664; 96374; C9113; J0456; J1442; J1940; J2060; J2543; J3475; J7030; J7050